=== PATIENT | male | born 1960 | race Caucasian/White ===

== ENCOUNTER 2022-10-20 20:41 | Emergency (ER) | payer MEDICARE ==
[~2022-10-20] VITALS: Ht 180.3 cm; Wt 95.2 kg
--- OUTSIDE RECORDS SUMMARY | ~2022-10-20 | XMS | Continuity of Care Document ---
Demographics + + + | Address | [address] | | | [place] [address] | + + + | Preferred Language | Unknown | + + + | Marital Status | | + + + | Confucianist Affiliation | Unknown | + + + | Race | White | + + + | Ethnic Group | Not or | + + + Author + + + | Author | [facility] | + + + | Organization | [facility] | + + + | Address | [address] | | | [place], [place] [address] | + + + | Phone | | + + + Care Team Providers + + + + | Care Bushel Worker Name | Role | Phone | + + + + Unavailable | Unavailable | + + + + Unavailable | Unavailable | + + + + Allergies No information. Encounters No information. Functional Status No information. Immunizations No information. Medications + + + + | date | description | facility | + + + + | 2022-08-31 00:00 | GABAPENTIN | [facility] | + + + + | 2022-08-31 00:00 | predniSONE | [facility] | + + + + | 2022-08-31 00:00 | HYDROCODONE | [facility] | | | BIT/ACETAMINOPHEN | | + + + + | 2022-08-31 00:00 | HYDROmorphone HCL | [facility] | + + + + | 2022-08-31 00:00 | LOSARTAN POTASSIUM | [facility] | + + + + Problems + + + + | date | description | facility | + + + + | 2022-08-31 00:00 | Hypertension | [facility] | + + + + | 2022-08-31 00:00 | Acute sciatica | [facility] | + + + + Procedures No information. Results/Labs +--------+--------+ + +---------+--------+ + | test | date | author | facility | value | unit | | | | | | | | | interpreta | | | | | | | | tion | +--------+--------+ + +---------+--------+ + + + | Result panel 1 | + + + + + + +---------+ + + | (unknown) | (no date) | (unknown) | [facility] | (no | (units | (unknown) | | | [facility] | [facility] | | | | + + + + +---------+ + + + + | Result panel 2 | + + + + + + +---------+ + + | (unknown) | (no date) | (unknown) | [facility] | (no | (units | (unknown) | | | | [facility] | value) | unknown) | | | | [facility] | | | | + + + + +---------+ + + + + | Result panel 3 | + + + + + + +---------+ + + | (unknown) | (no date) | (unknown) | [facility] | (no | (units | (unknown) | | | | [facility] | value) | unknown) | | | | | [facility] | | | | + + + + +---------+ + + + + | Result panel 4 | + + + + + + +---------+ + + | (unknown) | (no date) | (unknown) | [facility] | (no | (units | (unknown) | | | | [facility] | value) | unknown) | | | | | [facility] | | | | + + + + +---------+ + + + + | Result panel 5 | + + + + + + +---------+ + + | (unknown) | (no date) | (unknown) | [facility] | (no | (units | (unknown) | | | | [facility] | value) | unknown) | | | | | [facility] | | | | + + + + +---------+ + + + + | Result panel 6 | + + + + + + +---------+ + + | (unknown) | (no date) | (unknown) | [facility] | (no | (units | (unknown) | | | | [facility] | value) | unknown) | | | | | [facility] | | | | + + + + +---------+ + + + + | Result panel 7 | + + + + + + +---------+ + + | (unknown) | (no date) | (unknown) | [facility] | (no | (units | (unknown) | | | | [facility] | value) | unknown) | | | | [facility] | | | | + + + + +---------+ + + + + | Result panel 8 | + + + + + + +---------+ + + | (unknown) | (no date) | (unknown) | [facility] | (no | (units | (unknown) | | | | [facility] | value) | unknown) | | | | [facility] | | | | + + + + +---------+ + + + + | Result panel 9 | + + + + + + +---------+ + + | (unknown) | (no date) | (unknown) | [facility] | (no | (units | (unknown) | | | | [facility] | value) | unknown) | | | | [facility] | | | | + + + + +---------+ + + + + | Result panel 10 | + + + + + + +---------+ + + | (unknown) | (no date) | (unknown) | [facility] | (no | (units | (unknown) | | | | [facility] value) | unknown) | | | | [facility] | | | | + + + + +---------+ + + + + | Result panel 11 | + + + + + + +---------+ + + | (unknown) | (no date) | (unknown) | [facility] | (no | (units | (unknown) | | | | [facility] value) | unknown) | | | | [facility] | | | | + + + + +---------+ + + + + | Result panel 12 | + + + + + + +---------+ + + | (unknown) | (no date) | (unknown) | [facility] | (no | (units | (unknown) | | | | [facility] value) | unknown) | | | | [facility] | | | | + + + + +---------+ + + + + | Result panel 13 | + + + + + + +---------+ + + | (unknown) | (no date) | (unknown) | [facility] | (no | (units | (unknown) | | | | [facility] value) | unknown) | | | | [facility] | | | | + + + + +---------+ + + + + | Result panel 14 | + + + + + + +---------+ + + | (unknown) | (no date) | (unknown) | [facility] | (no | (units | (unknown) | | | | [facility] value) | unknown) | | | | [facility] | | | | + + + + +---------+ + + + + | Result panel 15 | + + + + + + +---------+ + + | (unknown) | (no date) | (unknown) | [facility] | (no | (units | (unknown) | | | | [facility] value) | unknown) | | | | [facility] | | | | + + + + +---------+ + + + + | Result panel 16 | + + + + + + +---------+ + + | (unknown) | (no date) | (unknown) | [facility] | (no | (units | (unknown) | | | | [facility] value) | unknown) | | | | [facility] | | | | + + + + +---------+ + + + + | Result panel 17 | + + + + + + +---------+ + + | (unknown) | (no date) | (unknown) | [facility] | (no | (units | (unknown) | | | | [facility] value) | unknown) | | | | [facility] | | | | + + + + +---------+ + + + + | Result panel 18 | + + + + + + +---------+ + + | (unknown) | (no date) | (unknown) | [facility] | (no | (units | (unknown) | | | | [facility] value) | unknown) | | | | [facility] | | | | + + + + +---------+ + + + + | Result panel 19 | + + + + + + +---------+ + + | (unknown) | (no date) | (unknown) | [facility] | (no | (units | (unknown) | | | | [facility] value) | unknown) | | | | [facility] | | | | + + + + +---------+ + + + + | Result panel 20 | + + + + + + +---------+ + + | (unknown) | (no date) | (unknown) | [facility] | (no | (units | (unknown) | | | | [facility] value) | unknown) | | | | [facility] | | | | + + + + +---------+ + + + + | Result panel 21 | + + + + + + +---------+ + + | (unknown) | (no date) | (unknown) | [facility] | (no | (units | (unknown) | | | | [facility] value) | unknown) | | | | [facility] | | | | + + + + +---------+ + + + + | Result panel 22 | + + + + + + +---------+ + + | (unknown) | (no date) | (unknown) | [facility] | (no | (units | (unknown) | | | | [facility] value) | [facility]) | | | [facility] | | | | + + + + +---------+ + + + + | Result panel 23 | + + + + + + +---------+ + + | (unknown) | (no date) | (unknown) | [facility] | (no | (units | (unknown) | | | | [facility]) | [facility]) | | | [facility] | | | | + + + + +---------+ + + + + | Result panel 24 | + + + + + + +---------+ + + | (unknown) | (no date) | (unknown) | [facility] | (no | (units | (unknown) | | | | [facility]) | [facility]) | | | [facility] | | | | + + + + +---------+ + + + + | Result panel 25 | + + + + + + +---------+ + + | (unknown) | (no date) | (unknown) | [facility] | (no | (units | (unknown) | | | | [facility] | [facility]) | | | [facility] | | | | + + + + +---------+ + + + + | Result panel 26 | + + + + + + +---------+ + + | (unknown) | (no date) | (unknown) | [facility] | (no | (units | (unknown) | | | | [facility]) | [facility]) | | | [facility] | | | | + + + + +---------+ + + + + | Result panel 27 | + + + + + + +---------+ + + | (unknown) | (no date) | (unknown) | [facility] | (no | (units | (unknown) | | | | [facility] | [facility]) | | | [facility] | | | | + + + + +---------+ + + + + | Result panel 28 | + + + + + + +---------+ + + | (unknown) | (no date) | (unknown) | [facility] | (no | (units | (unknown) | | | | [facility] | [facility]) | | | [facility] | | | | + + + + +---------+ + + + + | Result panel 29 | + + + + + + +---------+ + + | (unknown) | (no date) | (unknown) | [facility] | (no | (units | (unknown) | | | | [facility] | [facility]) | | [facility] | | | | + + + + +---------+ + + + + | Result panel 30 | + + + + + + +---------+ + + | (unknown) | (no date) | (unknown) | [facility] | (no | (units | (unknown) | | | | [facility] | [facility] | | [facility] | | | | + + + + +---------+ + + + + | Result panel 31 | + + + + + + +---------+ + + | (unknown) | (no date) | (unknown) | [facility] | (no | (units | (unknown) | | | | [facility] | [facility] | | [facility] | | | | + + + + +---------+ + + + + | Result panel 32 | + + + + + + +---------+ + + | (unknown) | (no date) | (unknown) | [facility] | (no | (units | (unknown) | | | | [facility] | [facility]) | | [facility] | | | | + + + + +---------+ + + + + | Result panel 33 | + + + + + + +---------+ + + | (unknown) | (no date) | (unknown) | [facility] | (no | (units | (unknown) | | | | [facility] value[facility] | unknown) | | [facility] | | | | + + + + +---------+ + + + + | Result panel 34 | + + + + + + +---------+ + + | (unknown) | (no date) | (unknown) | [facility] | (no | (units | (unknown) | | | | [facility] value[facility] | unknown) | | [facility] | | | | + + + + +---------+ + + Social History + + + + | date | description | facility | + + + + | 2022-08-31 00:00 | Unknown if ever smoked | [facility] | + + + + Vital Signs + + + +---------+ | date | measurement | value | units | + + + +---------+ | 2022-08-31 00:00 | BMI | 29.3 | kg/m2 | + + + +---------+ | 2022-08-31 00:00 | BP_diastolic | 102 | mmHg | + + + +---------+ | 2022-08-31 00:00 | BP_systolic | 156 | mmHg | + + + +---------+ | 2022-08-31 00:00 | heart_rate | 83 | /min | + + + +---------+ | 2022-08-31 00:00 | height_metric | 180.34 | cm | + + + +---------+ | 2022-08-31 00:00 | height_standard | 71 | in | + + + +---------+ | 2022-08-31 00:00 | o2_saturation | 93 | % | + + + +---------+ | 2022-08-31 00:00 | respiration_rate | 18 | /min | + + + +---------+ | 2022-08-31 00:00 | temperature_metric | 36.83 | C | | | | | | + + + +---------+ | 2022-08-31 00:00 | | 98.3 | F | | | temperature_standar | | | | | d | | | + + + +---------+ | 2022-08-31 00:00 | weight_metric | 95.25 | kg | + + + +---------+ | 2022-08-31 00:00 | weight_standard | 209.99 | lb | + + + +---------+ | 2022-08-31 00:00 | weight_standard | 210 | lb | + + + +---------+"
--- OUTSIDE RECORDS SUMMARY | ~2022-10-20 | XMS | Continuity of Care Document ---
Demographics + + + | Address | [address] | | | [place] [address] | + + + | Preferred Language | Unknown | + + + | Marital Status | | + + + | Rastafari Affiliation | Unknown | + + + | Race | White | + + + | Ethnic Group | Not or | + + + Author + + + | Author | [facility] | + + + | Organization | [facility] | + + + | Address | [address] | | | [place], [place] [address] | + + + | Phone | | + + + Care Team Providers + + + + | Care Manager Business Process Name | Role | Phone | + + + + Unavailable | Unavailable | + + + + Unavailable | Unavailable | + + + + Allergies No information. Encounters No information. Functional Status No information. Immunizations No information. Medications + + + + | date | description | facility | + + + + | 2022-08-31 00:00 | GABAPENTIN | [facility] | + + + + | 2022-08-31 00:00 | predniSONE | [facility] | + + + + | 2022-08-31 00:00 | HYDROCODONE | [facility] | | | BIT/ACETAMINOPHEN | | + + + + | 2022-08-31 00:00 | HYDROmorphone HCL | [facility] | + + + + | 2022-08-31 00:00 | LOSARTAN POTASSIUM | [facility] | + + + + Problems + + + + | date | description | facility | + + + + | 2022-08-31 00:00 | Hypertension | [facility] | + + + + | 2022-08-31 00:00 | Acute sciatica | [facility] | + + + + Procedures [...] | Unknown if ever smoked | [facility] | + + + + Vital [...]
[~2022-10-20 20:41] MED LIST: COZAAR100 MG PO; HYDROCODON-ACE1 EA10 PO; HYDROMORPHONE HC2 MG PO; NEURONTIN100 MG PO; PREDNISONE20 MG PO
--- OUTSIDE RECORDS SUMMARY | 2022-10-20 20:45 | XMS ---
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 EL[facility] ([facility] MO[facility] [address] [place] [address] TOTAL 3 NOTE: Visits indicate total known visits. ED/C VISIT TRACKING (12 MO.) 10/20/2022 20:41 [facility] [place] TYPE: Emergency COMPLAINT: - FALL 10/12/2022 13:24 [facility] TYPE: Emergency DIAGNOSES: - Malignant (primary) neoplasm, unspecified - Radiculopathy, lumbar region - Secondary malignant neoplasm of bone - Secondary malignant neoplasm of other specified sites - Back Pain 08/31/2022 09:41 [facility] [place] TYPE: Emergency COMPLAINT: - CHEST PAIN DIAGNOSES: - Low back pain, unspecified - Lumbago with sciatica, unspecified side - Other intermediate (current) drug therapy INPATIENT VISIT TRACKING (12 MO.) 10/12/2022 13:24 [facility] TYPE: Internal Medicine DIAGNOSES: - Essential (primary) hypertension - Lumbago with sciatica, right side - Malignant (primary) neoplasm, unspecified - Neoplasm related pain (acute) (chronic) - Other low back pain - Radiculopathy, lumbar region - Radiculopathy, lumbar region - Secondary malignant neoplasm of bone - Secondary malignant neoplasm of bone - Secondary malignant neoplasm of left lung - Secondary malignant neoplasm of other specified sites - Secondary malignant neoplasm of right lung [id number]
[2022-10-20] MEDS ORDERED: PREGABALIN50 MG PO (21:24)
[2022-10-20] MEDS ORDERED: PANTOPRAZOLE SO40 MG PO (21:24)
[2022-10-20] MEDS ORDERED: DEXAMETHASONE4 MG PO (21:24)
[2022-10-20] MEDS ORDERED: ONDANSETRON ODT4 MG PO (21:24)
[2022-10-20] MEDS ORDERED: DIAZEPAM2 MG PO (21:24)
[2022-10-20] MEDS ORDERED: BACLOFEN10 MG PO (21:24)
[2022-10-20] MEDS ORDERED: MELOXICAM15 MG PO (21:25)
[2022-10-20] MEDS ORDERED: LOSARTAN POTAS100 MG PO (21:25)
[2022-10-20] MEDS ORDERED: SUCRALFATE1 GM/10 ML PO (21:25)
[2022-10-20] MEDS ORDERED: PREGABALIN100 MG PO (21:25)
[2022-10-20] MEDS ORDERED: ADULT ASPIRIN R81 MG PO (21:26)
[2022-10-20] MEDS ORDERED: DILAUDID2 MG PO (23:28)
[2022-10-20] MEDS ORDERED: LYRICA75 MG PO (23:31)
[2022-10-20 23:47] VITALS: BP 131/92
== END 2022-10-20 23:50 | disposition home or self-care (01) ==
LOC: ED 20:41
DX: M89.9 Disorder of bone, unspecified (principal); I10 Essential (primary) hypertension; W18.09XA Striking against other object with subsequent fall, initial encounter; Z79.899 Other long term (current) drug therapy; Z79.82 Long term (current) use of aspirin
CPT/HCPCS: 72131; 73700; 96374; 99283 25; J1170

== ENCOUNTER 2022-10-23 16:47 | Emergency (ER) | payer MEDICARE ==
[~2022-10-23] VITALS: Ht 180.3 cm; Wt 95.2 kg
--- OUTSIDE RECORDS SUMMARY | ~2022-10-23 | XMS | Continuity of Care Document ---
Demographics + + + | Address | [address] | | | [place] [address] | + + + | Preferred Language | Unknown | + + + | Marital Status | | + + + | Yazdanism Affiliation | Unknown | + + + | Race | White | + + + | Ethnic Group | Not or | + + + Author + + + | Author | [facility] | + + + | Organization | [facility] | + + + | Address | [address] | | | [place] [address] | + + + | Phone | | + + + Care Team Providers + + + + | Care Software Manager Name | Role | Phone | + + + + Unavailable | Unavailable | + + + + Unavailable | Unavailable | + + + + Unavailable | Unavailable | + + + + Allergies and Intolerances + + + + + | date | description | facility | type | + + + + + | (no date) | No Known Allergies | [facility] | (unknown) | | | | | | + + + + + Encounters No information. Functional Status No information. Immunizations No information. Medications + + + + | date | description | facility | + + + + | 2022-10-20 00:00 | ONDANSETRON | [facility] | + + + + | 2022-08-31 00:00 | GABAPENTIN | [facility] | + + + + | 2022-10-20 00:00 | MELOXICAM | [facility] | + + + + | 2022-10-20 00:00 | BACLOFEN | [facility] | + + + + | 2022-10-20 00:00 | DEXAMETHASONE | [facility] | + + + + | 2022-10-20 00:00 | DIAZEPAM | [facility] | + + + + | 2022-10-20 00:00 | Aspirin | [facility] | + + + + | 2022-08-31 00:00 | predniSONE | [facility] | + + + + | 2022-10-20 00:00 | SUCRALFATE | [facility] | + + + + | 2022-10-20 00:00 | PANTOPRAZOLE SODIUM | [facility] | + + + + | 2022-10-20 00:00 | Pregabalin | [facility] | + + + + | 2022-10-20 00:00 | PREGABALIN | [facility] | + + + + | 2022-08-31 00:00 | HYDROCODONE | [facility] | | | BIT/ACETAMINOPHEN | | + + + + | 2022-08-31 00:00 | HYDROmorphone HCL | [facility] | + + + + | 2022-08-31 00:00 | HYDROmorphone HCL | [facility] | + + + + | 2022-10-20 00:00 | HYDROMORPHONE HCL | [facility] | + + + + | 2022-10-20 00:00 | LOSARTAN POTASSIUM | [facility] | + + + + | 2022-08-31 00:00 | LOSARTAN POTASSIUM | [facility] | + + + + Problems + + + + | date | description | facility | + + + + | 2022-08-31 00:00 | Hypertension | [facility] | + + + + | 2022-08-31 00:00 | Hypertension | [facility] | + + + + | 2022-08-31 00:00 | Acute sciatica | [facility] | + + + + | 2022-08-31 00:00 | Acute sciatica | [facility] | + + + + | 2022-08-31 09:41 | LUMBAGO WITH SCIATICA, | [facility] | | | UNSPECIFIED SIDE | | + + + + | 2022-08-31 09:41 | LOW BACK PAIN, UNSPECIFIED | [facility] | | | | | + + + + | 2022-08-31 09:41 | [facility] ([facility] | [facility] | | | DRUG THERAPY | | + + + + | 2022-10-20 00:00 | Lytic bone lesion of hip | [facility] | + + + + | 2022-10-20 00:00 | Bone lesion | [facility] | + + + + Procedures No [...] (unknown) | (no date) | (unknown) | [facility] (no | (units | (unknown) | | | | [facility] | value[facility] | unknown) [facility] | | | | + + + + +---------+ + + Social History + + + + | date | description | facility | + + + + | 2022-08-31 00:00 | Unknown if ever smoked | [facility] | + + + + | 2022-10-20 00:00 | Unknown if ever smoked | [facility] | + + + + Vital Signs [...]
--- OUTSIDE RECORDS SUMMARY | ~2022-10-23 | XMS | Continuity of Care Document ---
Demographics + + + | Address | [address] | | | [place] [address] | + + + | Preferred Language | Unknown | + + + | Marital Status | | + + + | Lutheran Affiliation | Unknown | + + + | Race | White | + + + | Ethnic Group | Not or | + + + Author + + + | Author | [place] | + + + | Organization | [place] | + + + | Address | [address] | | | [place] [address] | + + + | Phone | | + + + Care Team Providers + + + + | Care Production Dispatcher Name | Role | Phone | + [...] + | 2022-10-20 00:00 | ONDANSETRON | [facility] | + + + + | 2022-08-31 00:00 | GABAPENTIN | [facility] | + + + + | 2022-10-20 00:00 | MELOXICAM | [facility] | + + + + | 2022-10-20 00:00 | BACLOFEN | [facility] | + + + + | 2022-10-20 00:00 | DEXAMETHASONE | [facility] | + + + + | 2022-10-20 00:00 | DIAZEPAM | [facility] | + + + + | 2022-10-20 00:00 | Aspirin | [facility] | + + + + | 2022-08-31 00:00 | predniSONE | [facility] | + + + + | 2022-10-20 00:00 | SUCRALFATE | [facility] | + + + + | 2022-10-20 00:00 | PANTOPRAZOLE SODIUM | [facility] | + + + + | 2022-10-20 00:00 | Pregabalin | [facility] | + + + + | 2022-10-20 00:00 | PREGABALIN | [facility] | + + + + | 2022-08-31 00:00 | HYDROCODONE | [facility] | | | BIT/ACETAMINOPHEN | | + + + + | 2022-08-31 00:00 | HYDROmorphone HCL | [facility] | + + + + | 2022-08-31 00:00 | HYDROmorphone HCL | [facility] | + + + + | 2022-10-20 00:00 | HYDROMORPHONE HCL | [facility] | + + + + | 2022-10-20 00:00 | LOSARTAN POTASSIUM | [facility] | + + + + | 2022-08-31 00:00 | LOSARTAN POTASSIUM | [facility] | + + + + Problems + + + + | date | description | facility | + + + + | 2022-08-31 00:00 | Hypertension | [facility] | + + + + | 2022-08-31 00:00 | Hypertension | [facility] | + + + + | 2022-08-31 00:00 | Acute sciatica | [facility] | + + + + | 2022-08-31 00:00 | Acute sciatica | [facility] | + + + + | 2022-08-31 09:41 | LUMBAGO WITH SCIATICA, | [facility] | | | UNSPECIFIED SIDE | | + + + + | 2022-08-31 09:41 | LOW BACK PAIN, UNSPECIFIED | [facility] | | | | | + + + + | 2022-08-31 09:41 | OTHER USP (CURRENT) | [facility] | | | DRUG THERAPY | | + + + + | 2022-10-20 00:00 | Lytic bone lesion of hip | [facility] | + + + + | 2022-10-20 00:00 | Bone lesion | [facility] | + + + + Procedures No [...] 00:00 | Unknown if ever smoked | [facility] | + + + + | 2022-10-20 00:00 | Unknown if ever smoked | [facility] | + + + + Vital Signs [...]
[~2022-10-23 16:47] MED LIST changes: +ADULT ASPIRIN R81 MG PO; +BACLOFEN10 MG PO; +DEXAMETHASONE4 MG PO; +DIAZEPAM2 MG PO; +DILAUDID2 MG PO; +LOSARTAN POTAS100 MG PO; +LYRICA75 MG PO; +MELOXICAM15 MG PO; +ONDANSETRON ODT4 MG PO; +PANTOPRAZOLE SO40 MG PO; +PREGABALIN100 MG PO; +PREGABALIN50 MG PO; +SUCRALFATE1 GM/10 ML PO
--- OUTSIDE RECORDS SUMMARY | 2022-10-23 16:51 | XMS ---
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 ELizz [facility]IS[facility] COUNT (12 MO.) [facility] [address] [place] [address] TOTAL 4 NOTE: Visits indicate total known visits. ED/C VISIT TRACKING (12 MO.) 10/23/2022 16:49 [facility] TYPE: Emergency COMPLAINT: - HIP INJ 10/20/2022 20:41 [facility] [place] TYPE: Emergency COMPLAINT: - FALL 10/12/2022 13:24 [facility] TYPE: Emergency DIAGNOSES: - Malignant (primary) neoplasm, unspecified - Radiculopathy, lumbar region - Secondary malignant neoplasm of bone - Secondary malignant neoplasm of other specified sites - Back Pain 08/31/2022 09:41 [facility] TYPE: Emergency COMPLAINT: - CHEST PAIN DIAGNOSES: - Low back pain, unspecified - Lumbago with sciatica, unspecified side - Other intermediate manager (current) drug therapy INPATIENT VISIT TRACKING (12 MO.) 10/12/2022 13:24 [facility] TYPE: Internal Medicine DIAGNOSES: - Essential (primary) [...] - Secondary malignant neoplasm of right lung [email or web address]
[2022-10-23 19:58] VITALS: BP 176/111
== END 2022-10-23 19:58 | disposition short-term general hospital (02) ==
LOC: ED 16:47
DX: S72.142A Displaced intertrochanteric fracture of left femur, initial encounter for closed fracture (principal); W55.12XA Struck by horse, initial encounter; C90.00 Multiple myeloma not having achieved remission; I10 Essential (primary) hypertension; Z79.899 Other long term (current) drug therapy; Z79.82 Long term (current) use of aspirin
CPT/HCPCS: 36415; 73502; 80048; 85025; 87502; 96374; 96375; 96376; 99285 25; C9803; J1170; J2405; U0002

== ENCOUNTER 2022-11-07 08:05 | Day surgery (SDC) | payer MEDICARE ==
[2022-11-07 09:10] VITALS: BP 165/89
--- NOTE | 2022-11-07 12:46 | NUR ---
11/07/22 1246 Gisselle Jean Baptiste 1240-PT TO PACU IN SF POSITION. EYES CLOSED. DOES NOT RESPOND TO VERBAL OR TACTILE STIMULI. BREATHING EASY AND UNLABORED. SPO2 >95% ON 6 L O2 VIA SIMPLE MASK. 1246-PT OPENS EYES TO VERBAL AND TACTILE STIMULI. PT DENIES PAIN AND NAUSEA AND FALLS QUICKLY BACK TO SLEEP. BREATHING EASY AND UNLABORED. SPO2 >95% ON 6 L O2 VIA SIMPLE MASK.
[2022-11-07 13:05] VITALS: BP 175/93
--- NOTE | 2022-11-07 13:52 | NUR ---
1305: PT RETURNS TO UNIT VIA STRETCHER FROM PACU. AWAKE AND ALERT ON ARRIVAL. HOLDS APPROPRIATE CONVERSATION. VSS, RESP EVEN AND UNLABORED. DRESSING C/D/I. NERVE BLOCK IN PLACE AND MOVEMENT MINIMAL. CMS WNL. SCDS IN PLACE. DENIES PAIN AND NAUSEA. ICE WATER AND CRACKERS PROVIDED. POC DISCUSSED AND PT AGREEABLE AT THIS TIME. DENIES NEEDS, CALL LIGHT WITHIN REACH 1335: PT REPORTS URGE TO VOID. URINAL PROVIDED. NO FURTHER NEEDS
[2022-11-07 14:04] VITALS: BP 141/82
--- NOTE | 2022-11-07 14:07 | NUR ---
1405: PT COMPLETES PUDDING SNACK. VISITS WITH ON CELLPHONE. VSS, RESP EVEN AND UNLABORED. CONTS TO DENY PAIN AND NAUSEA. DRESSING REMAINS C/D/I, CMS WNL. SCDS IN PLACE. IV CONVERTED TO SL. PT REPORTS IS EN ROUTE. TO CALL FOR RN WHEN SHE ARRIVES. SUCCESSFUL FIRST POSTOP VOID, 500MLS
[2022-11-07 14:57] VITALS: BP 177/94
--- NOTE | 2022-11-07 15:34 | NUR ---
1445: PT'S ARRIVES AT THE BEDSIDE. PT DANGLES, GINA WELL DENIES DIZZINESS AND SOB. TOE TOUCH USING FRONT FACING WALKER TO BR AND BACK. STAND BY FROM THIS RN. DRESSED WITH ASSIST. DRESSING REMAINS C/D/I, CMS WNL. SL REMOVED WITH CATH TIP INTACT AND PRESSURE APPLIED TO SITE. DC INSTRUCTIONS PROVIDED AND DISCUSSED, PT VOICES UNDERSTANDING AND DENIES QUESTIONS AND CONCERNS AT THIS TIME 1510: WHEELED OFF OF UNIT BY THIS RN FOR DC. TRANSFERS INTO VEHICLE WITH MINIMAL ASSIST FROM THIS RN. NO PHYSICAL S/S OF DISTRESS.
--- NOTE | 2022-11-07 15:41 | NUR ---
[id number]: PT IN RESTROOM, AMBULATES WITH STEADY GAIT TO DS RM 2 WITH USE OF FWW. PT DENIES DIZZINESS OR NAUSEA WITH POSITION CHANGE. THIS RN ASSISTS PT INTO BED AND VS OBTAINED. SPOUSE AT BEDSIDE. Fan VALLES RN IN TO DC PATIENT.
--- NOTE | 2022-11-07 20:29 | OR ---
[facility] [address], [place] [address] Signed DATE OF OPERATION: 11/07/2022 SURGEON: José Estevez MD PREOPERATIVE DIAGNOSIS: Quadriceps rupture, left lower extremity. POSTOPERATIVE DIAGNOSIS: Left quad atrophy, left lower extremity. PROCEDURE PERFORMED: Exploration of quad tendon, left lower extremity. BUSINESS SALES CONSULTANT: Agueda Stephens PA-C. ANESTHESIA: General. BLOOD LOSS: 50 mL. TOURNIQUET TIME: Zero. BRIEF HISTORY: Mavis is a 62-year-old gentleman with hip fracture, complaining of knee pain. MRI of the knee showed possible partial quad tendon rupture. Risks and benefits of operative treatment were discussed with him and he elected to proceed. 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 DESCRIPTION OF PROCEDURE: Once consent was obtained, he was taken to the operating room. After adequate anesthesia, he was placed on the operating room table. All downside pressure points were well padded. The left leg was prepped and draped in a standard sterile fashion. A 3 inch incision was made from the superior pole of patella proximally, this was overlying the area of the palpable defect. This was carried through the skin and subcutaneous tissue and down to the quadriceps tendon. The skin flaps were developed medially and laterally. The tendon itself was visualized and was not found to be torn. There was significant atrophy of the distal quads, particularly the vastus lateralis and Electronically Signed By: JOSÉ ESTEVEZ MD 11/07/222028 PATIENT NAME: MAVIS ARSHAD OPERATIVE REPORT DATE OF : 56 REPORT #: [id number] PHYSICIAN: JOSÉ ESTEVEZ MD PCP: OTHER PCP REPORT IS CONFIDENTIAL AND NOT TO BE RELEASED WITHOUT AUTHORIZATION [address] [address] Signed rectus. The vastus medialis and obliquus were found to be fairly normal. The tendon insertion on the patella was completely intact. At that point, we elected to abandon the surgery. The wound was copiously irrigated with normal saline, closed with 0 Stratafix and 3-0 Stratafix. Steri-Strips and Liquiband were applied. Wound was dressed with an Acticoat dressing and he was awakened, taken to the recovery room in satisfactory condition. All sponge, needle, and instrument counts were correct. José Estevez MD BA/MODL /[id number] Copies: ~ Electronically Signed By: JOSÉ ESTEVEZ MD 11/07/222028 PATIENT NAME: MAVIS ARSHAD OPERATIVE REPORT DATE OF : 56 REPORT #: [id number] PHYSICIAN: JOSÉ ESTEVEZ MD PCP: OTHER PCP REPORT IS CONFIDENTIAL AND NOT TO BE RELEASED WITHOUT AUTHORIZATION
--- NOTE | 2022-11-08 16:32 | NUR ---
PT CALLED TO SEE HOW HE WAS DOING SINCE OPERATION YESTERDAY. PT STATES TAKING A "CRASH OFF OF PORCH" AND THAT HE HAS A BUMP ON THE BACK OF HIS HEAD AND HIS LEFT HIP IS TENDER. PT STATES BROTHER IN LAW CONTACTED DR. REDD' OFFICE. THIS RN CONFIRMS WITH DR. REDD' OFFICE WHO ARE AWARE.
[2022-11-10] MEDS ORDERED: DEXAMETHASONE4 MG PO (16:52)
[2022-11-10] MEDS ORDERED: PANTOPRAZOLE SO40 MG PO (16:52)
[2022-11-10] MEDS ORDERED: OXYCODONE HCL5 MG PO (16:53)
[2022-11-10] MEDS ORDERED: CELECOXIB200 MG PO (16:54)
[2022-11-10] MEDS ORDERED: PREGABALIN75 MG PO (16:55)
[2022-11-10] MEDS ORDERED: ACETAMINOPHEN325 M1 PO (16:56)
[2022-11-10] MEDS ORDERED: GABAPENTIN100 MG PO (16:58)
[2022-11-11] MEDS ORDERED: ACETAMINOPHEN500 MG PO (11:59)
[2022-11-11] MEDS ORDERED: LIDOCAINE PAIN1 EACH TD (11:59)
[2022-11-11] MEDS ORDERED: OXYCODONE HCL5 MG PO (12:01)
== END 2022-11-07 15:10 | disposition home or self-care (01) ==
LOC: DS 08:05
PROVIDERS: ATTEND Specialist
PROC: 3E0T3BZ Introduction of Anesthetic Agent into Peripheral Nerves and Plexi, Percutaneous Approach (ICD-10-PCS; 2022-11-07)
PROC: 0YJ Anatomical Regions, Lower Extremities, Inspection (ICD-10-PCS; principal; 2022-11-07 14:15)
DX: M62.552 Muscle wasting and atrophy, not elsewhere classified, left thigh (principal); S72.142A Displaced intertrochanteric fracture of left femur, initial encounter for closed fracture; W55.12XA Struck by horse, initial encounter; Z79.899 Other long term (current) drug therapy
CPT/HCPCS: 01360; 36415; 64447; 76942; 80053; 85025; J0690; J1100; J1885; J2001; J2405; J2704; J2795; J3010

== ENCOUNTER 2022-12-13 11:17 | Inpatient (IN) | payer MEDICARE ==
[~2022-12-13] VITALS: Ht 177.8 cm; Wt 87.9 kg
--- OUTSIDE RECORDS SUMMARY | ~2022-12-13 | XMS | Continuity of Care Document ---
Demographics + + + | Address | [address] | | | [place] [address] | + + + | Preferred Language | Unknown | + + + | Marital Status | | + + + | Gnosticist Affiliation | Unknown | + + + | Race | White | + + + | Ethnic Group | Not or | + + + Author + + + | Author | [facility] | + + + | Organization | [facility] | + + + | Address | [address] | | | [place] [address] | + + + | Phone | | + + + Care Team Providers + + + + | Care Environmental Engineering Technician Name | Role | Phone | + [...] Unavailable | + + + + Allergies and Intolerances + + + + + + | date | description | facility | reaction | severity | + + + + + + | (no date) | No Known | [facility] | (no reaction) | (no severity) | | | Allergies | | | | + + + + + + Encounters No information. Functional Status No information. Immunizations No information. Medications + + + + | date | description | facility | + + + + | 2022-10-20 00:00 | ONDANSETRON | [facility] | + + + + | 2022-10-23 00:00 | ONDANSETRON | [facility] | + + + + | 2022-11-07 00:00 | ONDANSETRON | [facility] | + + + + | 2022-11-11 00:00 | ONDANSETRON | [facility] | + + + + | 2022-11-11 00:00 | OXYCODONE HCL | [facility] | + + + + | 2022-08-31 00:00 | GABAPENTIN | [facility] | + + + + | 2022-10-20 00:00 | MELOXICAM | [facility] | + + + + | 2022-10-23 00:00 | MELOXICAM | [facility] | + + + + | 2022-11-07 00:00 | MELOXICAM | [facility] | + + + + | 2022-11-11 00:00 | MELOXICAM | [facility] | + + + + | 2022-11-11 00:00 | Lidocaine | [facility] | + + + + | 2022-10-20 00:00 | BACLOFEN | [facility] | + + + + | 2022-10-23 00:00 | BACLOFEN | [facility] | + + + + | 2022-11-07 00:00 | BACLOFEN | [facility] | + + + + | 2022-11-11 00:00 | BACLOFEN | [facility] | + + + + | 2022-10-20 00:00 | DEXAMETHASONE | [facility] | + + + + | 2022-10-23 00:00 | DEXAMETHASONE | [facility] | + + + + | 2022-11-07 00:00 | DEXAMETHASONE | [facility] | + + + + | 2022-11-11 00:00 | DEXAMETHASONE | [facility] | + + + + | 2022-10-20 00:00 | DIAZEPAM | [facility] | + + + + | 2022-10-23 00:00 | DIAZEPAM | [facility] | + + + + | 2022-11-07 00:00 | DIAZEPAM | [facility] | + + + + | 2022-11-11 00:00 | DIAZEPAM | [facility] | + + + + | 2022-11-11 00:00 | ACETAMINOPHEN | [facility] | + + + + | 2022-11-11 00:00 | CELECOXIB | [facility] | + + + + | 2022-10-20 00:00 | Aspirin | [facility] | + + + + | 2022-10-23 00:00 | Aspirin | [facility] | + + + + | 2022-11-07 00:00 | Aspirin | [facility] | + + + + | 2022-11-11 00:00 | Aspirin | [facility] | + + + + | 2022-11-11 00:00 | GABAPENTIN | [facility] | + + + + | 2022-08-31 00:00 | predniSONE | [facility] | + + + + | 2022-10-20 00:00 | SUCRALFATE | [facility] | + + + + | 2022-10-23 00:00 | SUCRALFATE | [facility] | + + + + | 2022-11-07 00:00 | SUCRALFATE | [facility] | + + + + | 2022-11-11 00:00 | SUCRALFATE | [facility] | + + + + | 2022-11-11 00:00 | ACETAMINOPHEN | [facility] | + + + + | 2022-10-20 00:00 | PANTOPRAZOLE SODIUM | [facility] | + + + + | 2022-10-23 00:00 | PANTOPRAZOLE SODIUM | [facility] | + + + + | 2022-11-11 00:00 | PANTOPRAZOLE SODIUM | [facility] | + + + + | 2022-10-20 00:00 | Pregabalin | [facility] | + + + + | 2022-10-23 00:00 | Pregabalin | [facility] | + + + + | 2022-11-11 00:00 | Pregabalin | [facility] | + + + + | 2022-10-20 00:00 | PREGABALIN | [facility] | + + + + | 2022-10-20 00:00 | PREGABALIN | [facility] | + + + + | 2022-08-31 00:00 | HYDROCODONE | [facility] | | | BIT/ACETAMINOPHEN | | + + + + | 2022-08-31 00:00 | HYDROmorphone HCL | [facility] | + + + + | 2022-08-31 00:00 | HYDROmorphone HCL | [facility] | + + + + | 2022-08-31 00:00 | HYDROmorphone HCL | [facility] | + + + + | 2022-08-31 00:00 | HYDROmorphone HCL | [facility] | + + + + | 2022-08-31 00:00 | HYDROmorphone HCL | [facility] | + + + + | 2022-10-20 00:00 | HYDROMORPHONE HCL | [facility] | + + + + | 2022-10-20 00:00 | HYDROMORPHONE HCL | [facility] | + + + + | 2022-10-20 00:00 | HYDROMORPHONE HCL | [facility] | + + + + | 2022-10-20 00:00 | HYDROMORPHONE HCL | [facility] | + + + + | 2022-10-20 00:00 | LOSARTAN POTASSIUM | [facility] | + + + + | 2022-10-23 00:00 | LOSARTAN POTASSIUM | [facility] | + + + + | 2022-11-07 00:00 | LOSARTAN POTASSIUM | [facility] | + + + + | 2022-11-11 00:00 | LOSARTAN POTASSIUM | [facility] | + + + + | 2022-08-31 00:00 | LOSARTAN POTASSIUM | [facility] | + + + + Problems + + + + | date | description | facility | + + + + | 2022-08-31 00:00 | Hypertension | [facility] | + + + + | 2022-08-31 00:00 | Hypertension | [facility] | + + + + | 2022-08-31 00:00 | Hypertension | [facility] | + + + + | 2022-08-31 00:00 | Hypertension | [facility] | + + + + | 2022-08-31 00:00 | Hypertension | [facility] | + + + + | 2022-08-31 00:00 | Acute sciatica | [facility] | + + + + | 2022-08-31 00:00 | Acute sciatica | [facility] | + + + + | 2022-08-31 00:00 | Acute sciatica | [facility] | + + + + | 2022-08-31 00:00 | Acute sciatica | [facility] | + + + + | 2022-08-31 00:00 | Acute sciatica | [facility] | + + + + | 2022-08-31 09:41 | LUMBAGO WITH SCIATICA, | [facility] | | | UNSPECIFIED SIDE | | + + + + | 2022-08-31 09:41 | LOW BACK PAIN, UNSPECIFIED | [facility] | | | | | + + + + | 2022-08-31 09:41 | OTHER CARE HOME (CURRENT) | [facility] | | | DRUG THERAPY | | + + + + | 2022-10-20 00:00 | Lytic bone lesion of hip | [facility] | + + + + | 2022-10-20 00:00 | Lytic bone lesion of hip | [facility] | + + + + | 2022-10-20 00:00 | Lytic bone lesion of hip | [facility] | + + + + | 2022-10-20 00:00 | Lytic bone lesion of hip | [facility] | + + + + | 2022-10-20 00:00 | Bone lesion | [facility] | + + + + | 2022-10-20 00:00 | Bone lesion | [facility] | + + + + | 2022-10-20 00:00 | Bone lesion | [facility] | + + + + | 2022-10-20 00:00 | Bone lesion | [facility] | + + + + | 2022-10-20 20:41 | Essential (primary) | [facility] | | | hypertension | | + + + + | 2022-10-20 20:41 | PAIN IN LEFT HIP | [facility] | + + + + | 2022-10-20 20:41 | DISORDER OF BONE, | [facility] | | | UNSPECIFIED | | + + + + | 2022-10-20 20:41 | STRIKING AGAINST OTH | [facility] | | | OBJECT W SUBSEQUENT FALL, | | | | INI | | + + + + | 2022-10-20 20:41 | CARE HOME (CURRENT) USE OF | [facility] | | | ASPIRIN | | + + + + | 2022-10-20 20:41 | OTHER CARE HOME (CURRENT) | [facility] | | | DRUG THERAPY | | + + + + | 2022-10-23 00:00 | Multiple myeloma | [facility] | + + + + | 2022-10-23 00:00 | Multiple myeloma | [facility] | + + + + | 2022-10-23 00:00 | Multiple myeloma | [facility] | + + + + | 2022-10-23 00:00 | Intertrochanteric fracture | [facility] | | | of left femur | | + + + + | 2022-10-23 00:00 | Intertrochanteric fracture | [facility] | | | of left femur | | + + + + | 2022-10-23 00:00 | Intertrochanteric fracture | [facility] | | | of left femur | | + + + + | 2022-10-23 16:49 | MULTIPLE MYELOMA NOT | [facility] | | | HAVING ACHIEVED REMISSION | | + + + + | 2022-10-23 16:49 | Essential (primary) | [facility] | | | hypertension | | + + + + | 2022-10-23 16:49 | DISPLACED | [facility] | | | INTERTROCHANTERIC FRACTURE | | | | OF LEFT FEMUR, INIT | | + + + + | 2022-10-23 16:49 | STRUCK BY HORSE, INITIAL | [facility] | | | ENCOUNTER | | + + + + | 2022-10-23 16:49 | TARP REPAIRER (CURRENT) USE OF | [facility] | | | ASPIRIN | | + + + + | 2022-10-23 16:49 | OTHER TARP REPAIRER (CURRENT) | [facility] | | | DRUG THERAPY | | + + + + | 2022-11-07 08:05 | MUSCLE WASTING AND | [facility] | | | ATROPHY, NEC, LEFT THIGH | | + + + + | 2022-11-07 08:05 | DISPLACED | [facility] | | | INTERTROCHANTERIC FRACTURE | | | | OF LEFT FEMUR | | + + + + | 2022-11-07 08:05 | STRUCK BY HORSE, INITIAL | [facility] | | | ENCOUNTER | | + + + + | 2022-11-07 08:05 | OTHER TARP REPAIRER (CURRENT) | [facility] | | | DRUG THERAPY | | + + + + | 2022-11-10 00:00 | Metastatic malignant | [facility] | | | neoplasm | | + + + + | 2022-11-10 00:00 | Avulsion of scapula | [facility] | + + + + | 2022-11-10 10:43 | MALIGNANT NEOPLASM OF UNSP | [facility] | | | PART OF UNSPECIFIED ADR | | + + + + | 2022-11-10 10:43 | ANEMIA, UNSPECIFIED | [facility] | + + + + | 2022-11-10 10:43 | HYPO-OSMOLALITY AND | [facility] | | | HYPONATREMIA | | + + + + | 2022-11-10 10:43 | Essential (primary) | [facility] | | | hypertension | | + + + + | 2022-11-10 10:43 | TACHYCARDIA, UNSPECIFIED | [facility] | + + + + | 2022-11-10 10:43 | SIRS OF NON-INFECTIOUS | [facility] | | | ORIGIN W/O ACUTE ORGAN DYSF | | | | | | + + + + | 2022-11-10 10:43 | FRACTURE OF UNSP PART OF | [facility] | | | SCAPULA, RIGHT SHOULDER, | | + + + + | 2022-11-10 10:43 | DISPLACED | [facility] | | | INTERTROCHANTERIC FRACTURE | | | | OF LEFT FEMUR, INIT | | + + + + | 2022-11-10 10:43 | UNSPECIFIED FALL, INITIAL | [facility] | | | ENCOUNTER | | + + + + | 2022-11-10 10:43 | CARE HOME (CURRENT) USE OF | [facility] | | | ASPIRIN | | + + + + | 2022-11-10 10:43 | OTHER CARE HOME (CURRENT) | [facility] | | | DRUG THERAPY | | + + + + | 2022-11-14 14:00 | 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 Results/Labs +--------+--------+ +---------+--------+---------+ | test | date | facility | value | unit | notes | +--------+--------+ +---------+--------+---------+ + + | Result panel 1 | + + + + + +--------+ + + | | 2022-08-31 | [facility] | 13.8 | (missing) | (missing) | | (unavailable | 10:10:07 | [facility] | | | | + + + +--------+ + + + + | Result panel 2 | + + + + + +--------+ + + | | 2022-08-31 | [facility] | 5.32 | (missing) | (missing) | | (unavailable | 10:10:07 [facility] | | | | + + + +--------+ + + + + | Result panel 3 | + + + + + +--------+ + + | | 2022-08-31 | [facility] | 16.1 | (missing) | (missing) | | (unavailable | 10:10:07 [facility] | | | | + + + +--------+ + + + + | Result panel 4 | + + + + + +--------+ + + | | 2022-08-31 | [facility] | 46.7 | (missing) | (missing) | | (unavailable | 10:10:07 [facility] | | | | + + + +--------+ + + + + | Result panel 5 | + + + + + +--------+ + + | | 2022-08-31 | [facility] | 87.8 | (missing) | (missing) | | (unavailable | 10:10:07 [facility] | | | | + + + +--------+ + + + + | Result panel 6 | + + + + + +--------+ + + | | 2022-08-31 | [facility] | 30.2 | (missing) | (missing) | | (unavailable | 10:10:07 [facility] | | | | + + + +--------+ + + + + | Result panel 7 | + + + + + +--------+ + + | | 2022-08-31 | [facility] | 34.4 | (missing) | (missing) | | (unavailable | 10:10:07 [facility] | | | | + + + +--------+ + + + + | Result panel 8 | + + + + + +--------+ + + | | 2022-08-31 | [facility] | 14.1 | (missing) | (missing) | | (unavailable | 10:10:07 [facility] | | | | + + + +--------+ + + + + | Result panel 9 | + + + + + +-------+ + + | | 2022-08-31 | [facility] | 272 | (missing) | (missing) | | (unavailable | 10:10:07 [facility] | | | | + + + +-------+ + + + + | Result panel 10 | + + + + + +--------+ + + | | 2022-08-31 | [facility] | 81.0 | (missing) | (missing) | | (unavailable | 10:10:07 [facility] | | | | + + + +--------+ + + + + | Result panel 11 | + + + + + +-------+ + + | | 2022-08-31 | [facility] | 9.6 | (missing) | (missing) | | (unavailable | 10:10:07 [facility] | | | | + + + +-------+ + + + + | Result panel 12 | + + + + + +-------+ + + | | 2022-08-31 | [facility] | 8.8 | (missing) | (missing) | | (unavailable | 10:10:07 [facility] | | | | + + + +-------+ + + + + | Result panel 13 | + + + + + +-------+ + + | | 2022-08-31 | [facility] | 0.5 | (missing) | (missing) | | (unavailable | 10:10:07 [facility] | | | | + + + +-------+ + + + + | Result panel 14 | + + + + + +-------+ + + | | 2022-08-31 | [facility] | 0.1 | (missing) | (missing) | | (unavailable | 10:10:07 [facility] | | | | + + + +-------+ + + + + | Result panel 15 | + + + + + +-------+---------+ + | | 2022-08-31 | [facility] | 119 | mg/dL | (missing) | | (unavailable | 10:50:07 [facility] | | | | + + + +-------+---------+ + + + | Result panel 16 | + + + + + +------+---------+ + | | 2022-08-31 | [facility] | 28 | mg/dL | (missing) | | (unavailable | 10:50:07 [facility] | | | | + + + +------+---------+ + + + | Result panel 17 | + + + + + +--------+---------+ + | | 2022-08-31 | [facility] | 0.90 | mg/dL | (missing) | | (unavailable | 10:50:07 [facility] | | | | + + + +--------+---------+ + + + | Result panel 18 | + + + + + +------+ + + | | 2022-08-31 | [facility] | 95 | (missing) | (missing) | | (unavailable | 10:50:07 [facility] | | | | + + + +------+ + + + + | Result panel 19 | + + + + + +---------+ + + | | 2022-08-31 | [facility] | 31.11 | (missing) | (missing) | | (unavailable | 10:50:07 [facility] | | | | + + + +---------+ + + + + | Result panel 20 | + + + + + +-------+ + + | | 2022-08-31 | [facility] | 135 | (missing) | (missing) | | (unavailable | 10:50:07 [facility] | | | | + + + +-------+ + + + + | Result panel 21 | + + + + + +-------+ + + | | 2022-08-31 | [facility] | 4.6 | (missing) | (missing) | | (unavailable | 10:50:07 [facility] | | | | + + + +-------+ + + + + | Result panel 22 | + + + + + +------+ + + | | 2022-08-31 | [facility] | 97 | (missing) | (missing) | | (unavailable | 10:50:07 [facility] | | | | + + + +------+ + + + + | Result panel 23 | + + + + + +------+ + + | | 2022-08-31 | [facility] | 29 | (missing) | (missing) | | (unavailable | 10:50:07 [facility] | | | | + + + +------+ + + + + | Result panel 24 | + + + + + +--------+ + + | | 2022-08-31 | [facility] | 13.6 | (missing) | (missing) | | (unavailable | 10:50:07 [facility] | | | | + + + +--------+ + + + + | Result panel 25 | + + + + + +-------+---------+ + | | 2022-08-31 | [facility] | 9.1 | mg/dL | (missing) | | (unavailable | 10:50:07 [facility] | | | | + + + +-------+---------+ + + + | Result panel 26 | + + + + + +-------+ + + | | 2022-08-31 | [facility] | 7.8 | (missing) | (missing) | | (unavailable | 10:50:07 [facility] | | | | + + + +-------+ + + + + | Result panel 27 | + + + + + +-------+ + + | | 2022-08-31 | [facility] | 3.9 | (missing) | (missing) | | (unavailable | 10:50:07 [facility] | | | | + + + +-------+ + + + + | Result panel 28 | + + + + + +-------+ + + | | 2022-08-31 | [facility] | 3.9 | (missing) | (missing) | | (unavailable | 10:50:07 [facility] | | | | + + + +-------+ + + + + | Result panel 29 | + + + + + +--------+ + + | | 2022-08-31 | [facility] | 1.00 | (missing) | (missing) | | (unavailable | 10:50:07 [facility] | | | | + + + +--------+ + + + + | Result panel 30 | + + + + + +-------+ + + | | 2022-08-31 | [facility] | 0.8 | (missing) | (missing) | | (unavailable | 10:50:07 [facility] | | | | + + + +-------+ + + + + | Result panel 31 | + + + + + +------+ + + | | 2022-08-31 | [facility] | 22 | (missing) | (missing) | | (unavailable | 10:50:07 [facility] | | | | + + + +------+ + + + + | Result panel 32 | + + + + + +------+ + + | | 2022-08-31 | [facility] | 33 | (missing) | (missing) | | (unavailable | 10:50:07 | [facility] | | | | + + + +------+ + + + + | Result panel 33 | + + + + + +-------+ + + | | 2022-08-31 | [facility] | 142 | (missing) | (missing) | | (unavailable | 10:50:07 [facility] | | | | + + + +-------+ + + + + | Result panel 34 | + + + + + +-------+ + + | | 2022-08-31 | [facility] | 9.4 | (missing) | (missing) | | (unavailable | 10:50:07 [facility] | | | | + + + +-------+ + + + + | Result panel 35 | + + + + + +--------+ + + | | 2022-10-23 | [facility] | 12.5 | (missing) | (missing) | | (unavailable | 17:02:07 [facility] | | | | + + + +--------+ + + + + | Result panel 36 | + + + + + +--------+ + + | | 2022-10-23 | [facility] | 38.0 | (missing) | (missing) | | (unavailable | 17:02:07 [facility] | | | | + + + +--------+ + + + + | Result panel 37 | + + + + + +--------+ + + | | 2022-10-23 | [facility] | 89.1 | (missing) | (missing) | | (unavailable | 17:02:07 [facility] | | | | + + + +--------+ + + + + | Result panel 38 | + + + + + +--------+ + + | | 2022-10-23 | [facility] | 29.3 | (missing) | (missing) | | (unavailable | 17:02:07 [facility] | | | | + + + +--------+ + + + + | Result panel 39 | + + + + + +--------+ + + | | 2022-10-23 | [facility] | 32.9 | (missing) | (missing) | | (unavailable | 17:02:07 [facility] | | | | + + + +--------+ + + + + | Result panel 40 | + + + + + +--------+ + + | | 2022-10-23 | [facility] | 13.7 | (missing) | (missing) | | (unavailable | 17:02:07 [facility] | | | + + + +--------+ + + + + | Result panel 41 | + + + + + +-------+ + + | | 2022-10-23 | [facility] | 234 | (missing) | (missing) | | (unavailable | 17:02:07 [facility] | | | | + + + +-------+ + + + + | Result panel 42 | + + + + + +--------+ + + | | 2022-10-23 | [facility] | 91.2 | (missing) | (missing) | | (unavailable | 17:02:07 [facility] | | | | + + + +--------+ + + + + | Result panel 43 | + + + + + +-------+ + + | | 2022-10-23 | [facility] | 2.2 | (missing) | (missing) | | (unavailable | 17:02:07 [facility] | | | | + + + +-------+ + + + + | Result panel 44 | + + + + + +-------+ + + | | 2022-10-23 | [facility] | 6.3 | (missing) | (missing) | | (unavailable | 17::07 [facility] | | | | + + + +-------+ + + + + | Result panel 45 | + + + + + +-------+ + + | | 2022-10-23 | [facility] | 0.1 | (missing) | (missing) | | (unavailable | 17:02:07 [facility] | | | | + + + +-------+ + + + + | Result panel 46 | + + + + + +-------+ + + | | 2022-10-23 | [facility] | 0.2 | (missing) | (missing) | | (unavailable | 17:02:07 [facility] | | | | + + + +-------+ + + + + | Result panel 47 | + + + + + +-------+---------+ + | | 2022-10-23 | [facility] | 192 | mg/dL | (missing) | | (unavailable | 17:02:07 [facility] | | | | + + + +-------+---------+ + + + | Result panel 48 | + + + + + +------+---------+ + | | 2022-10-23 | [facility] | 36 | mg/dL | (missing) | | (unavailable | 17::07 [facility] | | | | + + + +------+---------+ + + + | Result panel 49 | + + + + + +--------+---------+ + | | 2022-10-23 | [facility] | 1.10 | mg/dL | (missing) | | (unavailable | 17:02:07 [facility] | | | | + + + +--------+---------+ + + + | Result panel 50 | + + + + + +------+ + + | | 2022-10-23 | [facility] | 75 | (missing) | (missing) | | (unavailable | 17::07 [facility] | | | | + + + +------+ + + + + | Result panel 51 | + + + + + +---------+ + + | | 2022-10-23 | [facility] | 32.72 | (missing) | (missing) | | (unavailable | 17:02:07 [facility] | | | | + + + +---------+ + + + + | Result panel 52 | + + + + + +-------+ + + | | 2022-10-23 | [facility] | 139 | (missing) | (missing) | | (unavailable | 17:02:07 [facility] | | | | + + + +-------+ + + + + | Result panel 53 | + + + + + +-------+ + + | | 2022-10-23 | [facility] | 4.2 | (missing) | (missing) | | (unavailable | 17:02:07 [facility] | | | | + + + +-------+ + + + + | Result panel 54 | + + + + + +-------+ + + | | 2022-10-23 | [facility] | 102 | (missing) | (missing) | | (unavailable | 17::07 [facility] | | | | + + + +-------+ + + + + | Result panel 55 | + + + + + +------+ + + | | 2022-10-23 | [facility] | 29 | (missing) | (missing) | | (unavailable | 17:02:07 [facility] | | | | + + + +------+ + + + + | Result panel 56 | + + + + + +--------+ + + | | 2022-10-23 | [facility] | 12.2 | (missing) | (missing) | | (unavailable | 17::07 | [facility] | | | | + + + +--------+ + + + + | Result panel 57 | + + + + + +-------+---------+ + | | 2022-10-23 | [facility] | 8.3 | mg/dL | (missing) | | (unavailable | 17:02:07 | [facility] | | | | + + + +-------+---------+ + + + | Result panel 58 | + + + + + +--------+ + + | | 2022-10-23 | [facility] | 16.2 | (missing) | (missing) | | (unavailable | 17:02:07 | [facility] | | | | + + + +--------+ + + + + | Result panel 59 | + + + + + +--------+ + + | | 2022-10-23 | [facility] | 4.27 | (missing) | (missing) | | (unavailable | 17:02:07 | [facility] | | | | + + + +--------+ + + + + | Result panel 60 | + + + + + + + + + | | 2022-10-23 | [facility] | NEGATIVE | (missing) | (missing) | | (unavailable | 19:31:07 | [facility] | | | | + + + + + + + + + | Result panel 61 | + + + + + + + + + | | 2022-10-23 | [facility] | NEGATIVE | (missing) | (missing) | | (unavailable | 19:31:07 | [facility] | | | | + + + + + + + + + | Result panel 62 | + + + + + + + + + | | 2022-10-23 | [facility] | NEGATIVE | (missing) | (missing) | | (unavailable | 19:31:07 | [facility] | | | | + + + + + + + + + | Result panel 63 | + + + + + + + + + | | 2022-10-23 | [facility] | NEGATIVE | (missing) | (missing) | | (unavailable | 19:31:07 | [facility] | | | | + + + + + + + + + | Result panel 64 | + + + + + + + + + | | 2022-10-23 | [facility] | NEGATIVE | (missing) | (missing) | | (unavailable | 19:31:07 | [facility] | | | | + + + + + + + + + | Result panel 65 | + + + + + + + + + | | 2022-10-23 | [facility] | NEGATIVE | (missing) | (missing) | | (unavailable | 19:31:07 | [facility] | | | | + + + + + + + + + | Result panel 66 | + + + + + + + + + | | 2022-10-23 | [facility] | NEGATIVE | (missing) | (missing) | | (unavailable | 19:31:07 | [facility] | | | | + + + + + + + + + | Result panel 67 | + + + + + + + + + | | 2022-10-23 | [facility] | NEGATIVE | (missing) | (missing) | | (unavailable | 19:31:07 | [facility] | | | | + + + + + + + + + | Result panel 68 | + + + + + + + + + | | 2022-10-23 | [facility] | NEGATIVE | (missing) | (missing) | | (unavailable | 19:31:07 | [facility] | | | | + + + + + + + + + | Result panel 69 | + + + + + + + + + | | 2022-10-23 | [facility] | NEGATIVE | (missing) | (missing) | | (unavailable | 19:31:07 | [facility] | | | | + + + + + + + + + | Result panel 70 | + + + + + + + + + | | 2022-10-23 | [facility] | NEGATIVE | (missing) | (missing) | | (unavailable | 19:31:07 | [facility] | | | | + + + + + + + + + | Result panel 71 | + + + + + + + + + | | 2022-10-23 | [facility] | NEGATIVE | (missing) | (missing) | | (unavailable | 19:31:07 | [facility] | | | | + + + + + + + + + | Result panel 72 | + + + + + + + + + | RESEARCH | 2022-10-25 | [facility] | See | (missing) | (missing) | | SOLID TUMOR | 12:48:56 | [facility] | Separate | | | | NGS FINAL | | MEDICAL | Report | | | | | | CENTER | | | | + + + + + + + | RESEARCH | 2022-10-25 | [facility] | See | (missing) | (missing) | | SOLID TUMOR | 12:48:56 | [facility] | Separate | | | | NGS FINAL | | MEDICAL | Report | | | | | | CENTER | | | | + + + + + + + + + | Result panel 73 | + + + + + + + + + | | 2022-10-25 | [facility] | (missing) | (missing) | (missing) | | (unavailable | 12:49 | [facility] | | | | | ) | | MEDICAL | | | | | | | CENTER | | | | + + + + + + + | | 2022-10-25 | [facility] | (TC) and | (missing) | (missing) | | (unavailable | 12:49 | [facility] | tumor-infilt | | | | ) | | MEDICAL | rating | | | | | | CENTER | immune cells | | | | | | | (IC) based | | | | | | | on a | | | | | | | four-tiered | | | | | | | scoring | | | | | | | criteria as | | | + + + + + + + | | 2022-10-25 | [facility] | [address] | (missing) | (missing) | | (unavailable | 12:49 | [facility] | [address] | | | | ) | | MEDICAL | [address], | | | | | | CENTER | [place], | | | | | | | [place], [address] | | | | | | | CLIA#[id number] | | | | | | | [address] | | | + + + + + + + | | 2022-10-25 | [facility] | 10/13/2022 | (missing) | (missing) | | (unavailable | 12:49 | [facility] | 12:26 PDT | | | | ) | | MEDICAL | 10/25/2022 | | | | | | CENTER | 12:49 PDT | | | | | | | KWASI, | | | | | | | TJ Rodriguez | | | + + + + + + + | | 2022-10-25 | [facility] | 10/17/2022 | (missing) | (missing) | | (unavailable | 12:49 | [facility] | identifies | | | | ) | | MEDICAL | the patient | | | | | | CENTER | by name, | | | | | | | case number, | | | | | | | and tissue | | | | | | | site as | | | | | | | right | | | | | | | scapular | | | | | | | lesion, | | | + + + + + + + | | 2022-10-25 | [facility] | ACCT: | (missing) | (missing) | | (unavailable | 12:49 | [facility] | [id number] | | | | ) | | MEDICAL | | | | | | | CENTER | | | | + + + + + + + | | 2022-10-25 | [facility] | JEANCARLOS, | (missing) | (missing) | | (unavailable | 12:49 | [facility] | [facility] | | | | ) | | MEDICAL | | | | | | | CENTER | | | | + + + + + + + | | 2022-10-25 | [facility] | CASE #: | (missing) | (missing) | | (unavailable | 12:49 | [facility] | [id number] | | | | ) | | MEDICAL | | | | | | | CENTER | | | | + + + + + + + | | 2022-10-25 | [facility] | CT-guided | (missing) | (missing) | | (unavailable | 12:49 | [facility] | needle core | | | | ) | | MEDICAL | biopsies. | | | | | | CENTER | | | | + + + + + + + | | 2022-10-25 | [facility] | Clinical | (missing) | (missing) | | (unavailable | 12:49 | [facility] | Information | | | | ) | | MEDICAL | | | | | | | CENTER | | | | + + + + + + + | | 2022-10-25 | [facility] | Collected: | (missing) | (missing) | | (unavailable | 12:49 | [facility] | Received: | | | | ) | | MEDICAL | Responsible | | | | | | CENTER | Pathologist: | | | | | | | | | | + + + + + + + | | 2022-10-25 | [facility] | : | (missing) | (missing) | | (unavailable | 12:49 | [facility] | 1960 | | | | ) | | MEDICAL | AGE: 62 | | | | | | CENTER | years SEX: M | | | | | | | | | | + + + + + + + | | 2022-10-25 | [facility] | Diagnosis | (missing) | (missing) | | (unavailable | 12:49 | [facility] | | | | | ) | | MEDICAL | | | | | | | CENTER | | | | + + + + + + + | | 2022-10-25 | [facility] | | (missing) | (missing) | | (unavailable | 12:49 | [facility] | Electronical | | | | ) | | MEDICAL | ly signed | | | | | | CENTER | by: TJ | | | | | | | SJadiel | | | | | | | KWASI, | | | | | | | M.DJadiel | | | | | | | 10/26/2022 | | | | | | | 9:00 | | | + + + + + + + | | 2022-10-25 | [facility] | Gross | (missing) | (missing) | | (unavailable | 12:49 | [facility] | Description | | | | ) | | MEDICAL | | | | | | | CENTER | | | | + + + + + + + | | 2022-10-25 | [facility] | Immunohistoc | (missing) | (missing) | | (unavailable | 12:49 | [facility] | hemistry | | | | ) | | MEDICAL | with [place] | | | | | | CENTER | PD-L1 | | | | | | | ([id number]) | | | | | | | Assay was | | | | | | | validated | | | | | | | against Dako | | | | | | | PD-L1 | | | | | | | (22C3) | | | + + + + + + + | | 2022-10-25 | [facility] | Intensity: | (missing) | (missing) | | (unavailable | 12:49 | [facility] | Not | | | | ) | | MEDICAL | applicable | | | | | | CENTER | | | | + + + + + + + | | 2022-10-25 | [facility] | MRN: | (missing) | (missing) | | (unavailable | 12:49 | [facility] | [id number] | | | | ) | | MEDICAL | | | | | | | CENTER | | | | + + + + + + + | | 2022-10-25 | [facility] | MSG/MSG | (missing) | (missing) | | (unavailable | 12:49 | [facility] | | | | | ) | | MEDICAL | | | | | | | CENTER | | | | + + + + + + + | | 2022-10-25 | [facility] | Note: | (missing) | (missing) | | (unavailable | 12:49 | [facility] | [place] | | | | ) | | MEDICAL | PD-L1 | | | | | | CENTER | (SP263) | | | | | | | Assay is a | | | | | | | qualitative | | | | | | | immunohistoc | | | | | | | hemical | | | | | | | assay using | | | + + + + + + + | | 2022-10-25 | [facility] | ORDERING: | (missing) | (missing) | | (unavailable | 12:49 | [facility] | PHYSICIAN, | | | | ) | | MEDICAL | NOT ONTABLE | | | | | | CENTER | | | | + + + + + + + | | 2022-10-25 | [facility] | OUTSIDE | (missing) | (missing) | | (unavailable | 12:49 | [facility] | CASE REPORT | | | | ) | | MEDICAL | | | | | | | CENTER | | | | + + + + + + + | | 2022-10-25 | [facility] | OptiView DAB | (missing) | (missing) | | (unavailable | 12:49 | [facility] | IHC | | | | ) | | MEDICAL | Detection | | | | | | CENTER | Kit and | | | | | | | OptiView | | | | | | | Amplificatio | | | | | | | n Kit on a | | | | | | | VENTANA | | | | | | | BenchMark | | | | | | | ULTRA | | | + + + + + + + | | 2022-10-25 | [facility] | Outside | (missing) | (missing) | | (unavailable | 12:49 | [facility] | block | | | | ) | | MEDICAL | [id number] | | | | | | CENTER | A1) | | | | | | | received for | | | | | | | PD-L1 | | | | | | | immunostain | | | | | | | at the | | | | | | | request of | | | | | | | Dr. Glass | | | | | | | Solomon. | | | + + + + + + + | | 2022-10-25 | [facility] | PD-L1 | (missing) | (missing) | | (unavailable | 12:49 | [facility] | (SP263): | | | | ) | | MEDICAL | Negative | | | | | | CENTER | | | | + + + + + + + | | 2022-10-25 | [facility] | Pathology | (missing) | (missing) | | (unavailable | 12:49 | [facility] | Services- | | | | ) | | MEDICAL | [place] | | | | | | CENTER | [place] | | | | | | | [facility] | | | | | | | Laboratory, | | | | | | | [address] | | | | | | | [address] | | | | | | | [address], | | | + + + + + + + | | 2022-10-25 | [facility] | [place] | (missing) | (missing) | | (unavailable | 12:49 | [facility] | [phone] | | | | ) | | MEDICAL | | | | | | | CENTER | | | | + + + + + + + | | 2022-10-25 | [facility] | [place] | (missing) | (missing) | | (unavailable | 12:49 | [facility] | [place] | | | | ) | | MEDICAL | Regional | | | | | | CENTER | Laboratory & | | | | | | | Pathology | | | | | | | Services, | | | | | | | Immunohistoc | | | | | | | hemistry | | | | | | | Laboratory | | | + + + + + + + | | 2022-10-25 | [facility] | [place] | (missing) | (missing) | | (unavailable | 12:49 | [facility] | [place] | | | | ) | | MEDICAL | Regional | | | | | | CENTER | Laboratory | | | | | | | T | | | | | | | Pathology | | | | | | | Services, | | | | | | | Immunohistoc | | | | | | | hemistry | | | | | | | Laboratory | | | + + + + + + + | | 2022-10-25 | [facility] | Received | (missing) | (missing) | | (unavailable | 12:49 | [facility] | [facility] | | | | ) | | MEDICAL | Diagnostics, | | | | | | [facility] | [place], | | | | | | | EB at the | | | | | | | request of | | | | | | | Dr. Glass | | | | | | | Solomon is one | | | | | | | paraffin | | | + + + + + + + | | 2022-10-25 | [facility] | Tumor | (missing) | (missing) | | (unavailable | 12:49 | [facility] | Proportion | | | | ) | | MEDICAL | Score: Less | | | | | | CENTER | than 1% | | | + + + + + + + | | 2022-10-25 | [facility] | [place] | (missing) | (missing) | | (unavailable | 12:49 | [facility] | PD-L1 | | | | ) | | MEDICAL | (SP263) | | | | | | CENTER | Immunohistoc | | | | | | | hemical | | | | | | | Assay | | | + + + + + + + | | 2022-10-25 | [facility] | When | (missing) | (missing) | | (unavailable | 12:49 | [facility] | applicable, | | | | ) | | MEDICAL | appropriate | | | | | | CENTER | positive | | | | | | | controls | | | | | | | and/or | | | | | | | negative | | | | | | | controls | | | | | | | were used | | | | | | | for all | | | | | | | stains | | | + + + + + + + | | 2022-10-25 | [facility] | appropriatel | (missing) | (missing) | | (unavailable | 12:49 | [facility] | y.This test | | | | ) | | MEDICAL | and the | | | | | | CENTER | additional | | | | | | | tests | | | | | | | referred to | | | | | | | were | | | | | | | developed | | | | | | | and their | | | + + + + + + + | | 2022-10-25 | [facility] | characterist | (missing) | (missing) | | (unavailable | 12:49 | [facility] | ics | | | | ) | | MEDICAL | determined | | | | | | CENTER | by the | | | | | | | [place] | | | | | | | [place] | | | | | | | [facility] | | | | | | | Laboratory | | | | | | | and | | | | | | | Pathology | | | | | | | Services, | | | + + + + + + + | | 2022-10-25 | [facility] | fixed tissue | (missing) | (missing) | | (unavailable | 12:49 | [facility] | block | | | | ) | | MEDICAL | labeled | | | | | | CENTER | [id number] | | | | | | | A1 . The | | | | | | | correspondin | | | | | | | g verified | | | | | | | pathology | | | | | | | report dated | | | + + + + + + + | | 2022-10-25 | [facility] | including | (missing) | (missing) | | (unavailable | 12:49 | [facility] | immunohistoc | | | | ) | | MEDICAL | hemical | | | | | | CENTER | stains, | | | | | | | special | | | | | | | stains and | | | | | | | in situ | | | | | | | hybridizatio | | | | | | | n and | | | | | | | reacted | | | + + + + + + + | | 2022-10-25 | [facility] | instrument. | (missing) | (missing) | | (unavailable | 12:49 | [facility] | PD-L1 status | | | | ) | | MEDICAL | is | | | | | | CENTER | determined | | | | | | | by the PD-L1 | | | | | | | expression | | | | | | | in | | | | | | | proportion | | | | | | | of tumor | | | | | | | cells | | | + + + + + + + | | 2022-10-25 | [facility] | negative | (missing) | (missing) | | (unavailable | 12:49 | [facility] | <1%, low | | | | ) | | MEDICAL | expression | | | | | | CENTER | 1-10%, | | | | | | | moderate | | | | | | | expression | | | | | | | 11-49%, and | | | | | | | high | | | | | | | expression | | | | | | | >50%. | | | + + + + + + + | | 2022-10-25 | [facility] | performance | (missing) | (missing) | | (unavailable | 12:49 | [facility] | | | | | ) | | MEDICAL | | | | | | | CENTER | | | | + + + + + + + | | 2022-10-25 | [facility] | pharmDx, | (missing) | (missing) | | (unavailable | 12:49 | [facility] | and found to | | | | ) | | MEDICAL | be | | | | | | CENTER | comparable. | | | + + + + + + + | | 2022-10-25 | [facility] | protein in | (missing) | (missing) | | (unavailable | 12:49 | [facility] | formalin-fix | | | | ) | | MEDICAL | ed, | | | | | | CENTER | paraffin-emb | | | | | | | edded (FFPE) | | | | | | | lung | | | | | | | carcinoma | | | | | | | tissue | | | | | | | stained with | | | + + + + + + + | | 2022-10-25 | [facility] | rabbit | (missing) | (missing) | | (unavailable | 12:49 | [facility] | monoclonal | | | | ) | | MEDICAL | anti-PD-L1 | | | | | | CENTER | clone [id number] | | | | | | | intended for | | | | | | | use in the | | | | | | | assessment | | | | | | | of the PD-L1 | | | + + + + + + + + + | Result panel 74 | + + + + + +-------+ + + | | 2022-11-07 | [facility] | 6.5 | (missing) | (missing) | | (unavailable | 09::07 | [facility] | | | | + + + +-------+ + + + + | Result panel 75 | + + + + + +--------+ + + | | 2022-11-07 | [facility] | 3.39 | (missing) | (missing) | | (unavailable | 09::07 | [facility] | | | | + + + +--------+ + + + + | Result panel 76 | + + + + + +--------+ + + | | 2022-11-07 | [facility] | 10.4 | (missing) | (missing) | | (unavailable | 09:00:07 | [facility] | | | | + + + +--------+ + + + + | Result panel 77 | + + + + + +--------+ + + | | 2022-11-07 | [facility] | 30.0 | (missing) | (missing) | | (unavailable | 09:00:07 | [facility] | | | | + + + +--------+ + + + + | Result panel 78 | + + + + + +--------+ + + | | 2022-11-07 | [facility] | 88.5 | (missing) | (missing) | | (unavailable | 09::07 | [facility] | | | | + + + +--------+ + + + + | Result panel 79 | + + + + + +--------+ + + | | 2022-11-07 | [facility] | 30.6 | (missing) | (missing) | | (unavailable | 09:00:07 | [facility] | | | | + + + +--------+ + + + + | Result panel 80 | + + + + + +--------+ + + | | 2022-11-07 | [facility] | 34.6 | (missing) | (missing) | | (unavailable | 09::07 | [facility] | | | | + + + +--------+ + + + + | Result panel 81 | + + + + + +--------+ + + | | 2022-11-07 | [facility] | 14.8 | (missing) | (missing) | | (unavailable | 09::07 | [facility] | | | | + + + +--------+ + + + + | Result panel 82 | + + + + + +-------+ + + | | 2022-11-07 | [facility] | 202 | (missing) | (missing) | | (unavailable | 09:00:07 | [facility] | | | | + + + +-------+ + + + + | Result panel 83 | + + + + + +--------+ + + | | 2022-11-07 | [facility] | 75.4 | (missing) | (missing) | | (unavailable | 09:00:07 | [facility] | | | | + + + +--------+ + + + + | Result panel 84 | + + + + + +--------+ + + | | 2022-11-07 | [facility] | 11.0 | (missing) | (missing) | | (unavailable | 09:00:07 | [facility] | | | | + + + +--------+ + + + + | Result panel 85 | + + + + + +--------+ + + | | 2022-11-07 | [facility] | 11.8 | (missing) | (missing) | | (unavailable | 09:00:07 | [facility] | | | | + + + +--------+ + + + + | Result panel 86 | + + + + + +-------+ + + | | 2022-11-07 | [facility] | 1.6 | (missing) | (missing) | | (unavailable | 09:00:07 | [facility] | | | | + + + +-------+ + + + + | Result panel 87 | + + + + + +-------+ + + | | 2022-11-07 | [facility] | 0.2 | (missing) | (missing) | | (unavailable | 09:00:07 | [facility] | | | | + + + +-------+ + + + + | Result panel 88 | + + + + + +-------+---------+ + | | 2022-11-07 | [facility] | 103 | mg/dL | (missing) | | (unavailable | 09:00:07 | [facility] | | | | + + + +-------+---------+ + + + | Result panel 89 | + + + + + +------+---------+ + | | 2022-11-07 | [facility] | 26 | mg/dL | (missing) | | (unavailable | 09:00:07 | [facility] | | | | + + + +------+---------+ + + + | Result panel 90 | + + + + + +--------+---------+ + | | 2022-11-07 | [facility] | 0.90 | mg/dL | (missing) | | (unavailable | ::07 | [facility] | | | | + + + +--------+---------+ + + + | Result panel 91 | + + + + + +------+ + + | | 2022-11-07 | [facility] | 95 | (missing) | (missing) | | (unavailable | 09:00:07 | [facility] | | | | + + + +------+ + + + + | Result panel 92 | + + + + + +---------+ + + | | 2022-11-07 | [facility] | 28.88 | (missing) | (missing) | | (unavailable | 09:00:07 | [facility] | | | | + + + +---------+ + + + + | Result panel 93 | + + + + + +-------+ + + | | 2022-11-07 | [facility] | 140 | (missing) | (missing) | | (unavailable | 09:00:07 | [facility] | | | | + + + +-------+ + + + + | Result panel 94 | + + + + + +-------+ + + | | 2022-11-07 | [facility] | 4.3 | (missing) | (missing) | | (unavailable | 09:00:07 | [facility] | | | | + + + +-------+ + + + + | Result panel 95 | + + + + + +-------+ + + | | 2022-11-07 | [facility] | 101 | (missing) | (missing) | | (unavailable | 09:00:07 | [facility] | | | | + + + +-------+ + + + + | Result panel 96 | + + + + + +------+ + + | | 2022-11-07 | [facility] | 32 | (missing) | (missing) | | (unavailable | 09:00:07 | [facility] | | | | + + + +------+ + + + + | Result panel 97 | + + + + + +--------+ + + | | 2022-11-07 | [facility] | 11.3 | (missing) | (missing) | | (unavailable | 09:00:07 | [facility] | | | | + + + +--------+ + + + + | Result panel 98 | + + + + + +--------+---------+ + | | 2022-11-07 | [facility] | 10.4 | mg/dL | (missing) | | (unavailable | 09:00:07 | [facility] | | | | + + + +--------+---------+ + + + | Result panel 99 | + + + + + +-------+ + + | | 2022-11-07 | [facility] | 6.9 | (missing) | (missing) | | (unavailable | 09:00:07 | [facility] | | | | + + + +-------+ + + + + | Result panel 100 | + + + + + +-------+ + + | | 2022-11-07 | [facility] | 3.3 | (missing) | (missing) | | (unavailable | ::07 | [facility] | | | | + + + +-------+ + + + + | Result panel 101 | + + + + + +-------+ + + | | 2022-11-07 | [facility] | 3.6 | (missing) | (missing) | | (unavailable | 09::07 | [facility] | | | | + + + +-------+ + + + + | Result panel 102 | + + + + + +--------+ + + | | 2022-11-07 | [facility] | 0.92 | (missing) | (missing) | | (unavailable | 09::07 | [facility] | | | | + + + +--------+ + + + + | Result panel 103 | + + + + + +-------+ + + | | 2022-11-07 | [facility] | 0.6 | (missing) | (missing) | | (unavailable | 09::07 | [facility] | | | | + + + +-------+ + + + + | Result panel 104 | + + + + + +------+ + + | | 2022-11-07 | [facility] | 42 | (missing) | (missing) | | (unavailable | ::07 | [facility] | | | | + + + +------+ + + + + | Result panel 105 | + + + + + +------+ + + | | 2022-11-07 | [facility] | 31 | (missing) | (missing) | | (unavailable | 09:00:07 | [facility] | | | | + + + +------+ + + + + | Result panel 106 | + + + + + +-------+ + + | | 2022-11-07 | [facility] | 219 | (missing) | (missing) | | (unavailable | 09:00:07 | [facility] | | | | + + + +-------+ + + + + | Result panel 107 | + + + + + +------+ + + | | 2022-11-10 | [facility] | 78 | (missing) | (missing) | | (unavailable | 11:13:07 | [facility] | | | | + + + +------+ + + + + | Result panel 108 | + + + + + +-----+ + + | | 2022-11-10 | [facility] | 5 | (missing) | (missing) | | (unavailable | 11:13:07 | [facility] | | | | + + + +-----+ + + + + | Result panel 109 | + + + + + +-------+ + + | | 2022-11-10 | [facility] | 6.9 | (missing) | (missing) | | (unavailable | 11:13:07 | [facility] | | | | + + + +-------+ + + + + | Result panel 110 | + + + + + +-------+ + + | | 2022-11-10 | [facility] | 3.0 | (missing) | (missing) | | (unavailable | 11:13:07 | [facility] | | | | + + + +-------+ + + + + | Result panel 111 | + + + + + +-------+ + + | | 2022-11-10 | [facility] | 3.9 | (missing) | (missing) | | (unavailable | 11:13:07 | [facility] | | | | + + + +-------+ + + + + | Result panel 112 | + + + + + +--------+ + + | | 2022-11-10 | [facility] | 0.77 | (missing) | (missing) | | (unavailable | 11:13:07 | [facility] | | | | + + + +--------+ + + + + | Result panel 113 | + + + + + +-------+ + + | | 2022-11-10 | [facility] | 1.0 | (missing) | (missing) | | (unavailable | 11:13:07 | [facility] | | | | + + + +-------+ + + + + | Result panel 114 | + + + + + +------+ + + | | 2022-11-10 | [facility] | 54 | (missing) | (missing) | | (unavailable | 11::07 | [facility] | | | | + + + +------+ + + + + | Result panel 115 | + + + + + +------+ + + | | 2022-11-10 | [facility] | 10 | (missing) | (missing) | | (unavailable | 11:13:07 | [facility] | | | | + + + +------+ + + + + | Result panel 116 | + + + + + +------+ + + | | 2022-11-10 | [facility] | 22 | (missing) | (missing) | | (unavailable | 11:13:07 | [facility] | | | | + + + +------+ + + + + | Result panel 117 | + + + + + +-------+ + + | | 2022-11-10 | [facility] | 237 | (missing) | (missing) | | (unavailable | 11:13:07 | [facility] | | | | + + + +-------+ + + + + | Result panel 118 | + + + + + +-----+ + + | | 2022-11-10 | [facility] | 6 | (missing) | (missing) | | (unavailable | 11:13:07 | [facility] | | | | + + + +-----+ + + + + | Result panel 119 | + + + + + +---------+ + + | | 2022-11-10 | [facility] | 1.025 | (missing) | (missing) | | (unavailable | 21:22:07 | [facility] | | | | + + + +---------+ + + + + | Result panel 120 | + + + + + + + + + | | 2022-11-10 | [facility] | NEGATIVE | (missing) | (missing) | | (unavailable | 21:22:07 | [facility] | | | | + + + + + + + + + | Result panel 121 | + + + + + +-------+ + + | | 2022-11-10 | [facility] | 5.5 | (missing) | (missing) | | (unavailable | ::07 | [facility] | | | | + + + +-------+ + + + + | Result panel 122 | + + + + + + + + + | | 2022-11-10 | [facility] | NEGATIVE | (missing) | (missing) | | (unavailable | ::07 | [facility] | | | | + + + + + + + + + | Result panel 123 | + + + + + +-------+ + + | | 2022-11-10 | [facility] | 1.0 | (missing) | (missing) | | (unavailable | | [facility] | | | | + + + +-------+ + + + + | Result panel 124 | + + + + + + + + + | | 2022-11-10 | [facility] | NEGATIVE | (missing) | (missing) | | (unavailable | : | [facility] | | | | + + + + + + + + + | Result panel 125 | + + + + + + + + + | | 2022-11-10 | [facility] | NEGATIVE | (missing) | (missing) | | (unavailable | ::07 | [facility] | | | | + + + + + + + + + | Result panel 126 | + + + + + +-------+ + + | | 2022-11-10 | [facility] | 0-1 | (missing) | (missing) | | (unavailable | : | [facility] | | | | + + + +-------+ + + + + | Result panel 127 | + + + + + +-------+ + + | | 2022-11-10 | [facility] | 2-3 | (missing) | (missing) | | (unavailable | :07 | [facility] | | | | + + + +-------+ + + + + | Result panel 128 | + + + + + + + + + | | 2022-11-10 | [facility] | SQUAMOUS 1+ | (missing) | (missing) | | (unavailable | 07 | [facility] | | | | + + + + + + + + + | Result panel 129 | + + + + + + + + + | | 2022-11-10 | [facility] | NONE SEEN | (missing) | (missing) | | (unavailable | ::07 | [facility] | | | | + + + + + + + + + | Result panel 130 | + + + + + +--------+ + + | | 2022-11-10 | [facility] | RARE | (missing) | (missing) | | (unavailable | ::07 | [facility] | | | | + + + +--------+ + + + + | Result panel 131 | + + + + + + + + + | | 2022-11-10 | [facility] | NONE SEEN | (missing) | (missing) | | (unavailable | ::07 | [facility] | | | | + + + + + + + + + | Result panel 132 | + + + + + +------+ + + | | 2022-11-10 | [facility] | No | (missing) | (missing) | | (unavailable | :07 | [facility] | | | | + + + +------+ + + + + | Result panel 133 | + + + + + + + + + | | 2022-11-10 | [facility] | YELLOW | (missing) | (missing) | | (unavailable | ::07 | [facility] | | | | + + + + + + + + + | Result panel 134 | + + + + + +---------+ + + | | 2022-11-10 | [facility] | CLEAR | (missing) | (missing) | | (unavailable | ::07 | [facility] | | | | + + + +---------+ + + + + | Result panel 135 | + + + + + + + + + | | 2022-11-10 | [facility] | NEGATIVE | (missing) | (missing) | | (unavailable | 21::07 | [facility] | | | | + + + + + + + + + | Result panel 136 | + + + + + + + + + | | 2022-11-10 | [facility] | NEGATIVE | (missing) | (missing) | | (unavailable | 21:22:07 | [facility] | | | | + + + + + + + + + | Result panel 137 | + + + + + + + + + | | 2022-11-10 | [facility] | NEGATIVE | (missing) | (missing) | | (unavailable | 21:22:07 | [facility] | | | | + + + + + + + + + | Result panel 138 | + + + + + +--------+ + + | | 2022-11-11 | [facility] | 10.4 | (missing) | (missing) | | (unavailable | 05:54:07 | [facility] | | | | + + + +--------+ + + + + | Result panel 139 | + + + + + +--------+ + + | | 2022-11-11 | [facility] | 2.86 | (missing) | (missing) | | (unavailable | 05:54:07 | [facility] | | | | + + + +--------+ + + + + | Result panel 140 | + + + + + +-------+ + + | | 2022-11-11 | [facility] | 8.7 | (missing) | (missing) | | (unavailable | 05:54:07 [facility] | | | | + + + +-------+ + + + + | Result panel 141 | + + + + + +--------+ + + | | 2022-11-11 | [facility] | 25.3 | (missing) | (missing) | | (unavailable | [facility]54:07 [facility] | | | | + + + +--------+ + + + + | Result panel 142 | + + + + + +--------+ + + | | 2022-11-11 | [facility] | 88.4 | (missing) | (missing) | | (unavailable | [facility]54:07 [facility] | | | | + + + +--------+ + + + + | Result panel 143 | + + + + + +--------+ + + | | 2022-11-11 | [facility] | 30.5 | (missing) | (missing) | | (unavailable | [facility]54:07 [facility] | | | | + + + +--------+ + + + + | Result panel 144 | + + + + + +--------+ + + | | 2022-11-11 | [facility] | 34.5 | (missing) | (missing) | | (unavailable | [facility]54:07 [facility] | | | | + + + +--------+ + + + + | Result panel 145 | + + + + + +--------+ + + | | 2022-11-11 | [facility] | 15.4 | (missing) | (missing) | | (unavailable | [facility]54:07 [facility] | | | + + + +--------+ + + + + | Result panel 146 | + + + + + +-------+ + + | | 2022-11-11 | [facility] | 228 | (missing) | (missing) | | (unavailable | [facility]54:07 [facility] | | | + + + +-------+ + + + + | Result panel 147 | + + + + + +--------+ + + | | 2022-11-11 | [facility] | 77.2 | (missing) | (missing) | | (unavailable | [facility]:54:07 [facility] | | | | + + + +--------+ + + + + | Result panel 148 | + + + + + +-------+ + + | | 2022-11-11 | [facility] | 6.6 | (missing) | (missing) | | (unavailable | [facility]54:07 [facility] | | | + + + +-------+ + + + + | Result panel 149 | + + + + + +--------+ + + | | 2022-11-11 | [facility] | 15.2 | (missing) | (missing) | | (unavailable | [facility]54:07 [facility] | | | + + + +--------+ + + + + | Result panel 150 | + + + + + +-------+ + + | | 2022-11-11 | [facility] | 0.7 | (missing) | (missing) | | (unavailable | [facility]54:07 [facility] | | | | + + + +-------+ + + + + | Result panel 151 | + + + + + +-------+ + + | | 2022-11-11 | [facility] | 0.3 | (missing) | (missing) | | (unavailable | [facility]54:07 [facility] | | | | + + + +-------+ + + + + | Result panel 152 | + + + + + +-------+---------+ + | | 2022-11-11 | [facility] | 187 | mg/dL | (missing) | | (unavailable | 05:54:07 [facility] | | | | + + + +-------+---------+ + + + | Result panel 153 | + + + + + +------+---------+ + | | 2022-11-11 | [facility] | 19 | mg/dL | (missing) | | (unavailable | 05:54:07 [facility] | | | | + + + +------+---------+ + + + | Result panel 154 | + + + + + +--------+---------+ + | | 2022-11-11 | [facility] | 0.77 | mg/dL | (missing) | | (unavailable | 05:54:07 [facility] | | | | + + + +--------+---------+ + + + | Result panel 155 | + + + + + +-------+ + + | | 2022-11-11 | [facility] | 100 | (missing) | (missing) | | (unavailable | 05:54:07 [facility] | | | | + + + +-------+ + + + + | Result panel 156 | + + + + + +---------+ + + | | 2022-11-11 | [facility] | 24.67 | (missing) | (missing) | | (unavailable | 05:54:07 | [facility] | | | | + + + +---------+ + + + + | Result panel 157 | + + + + + +-------+ + + | | 2022-11-11 | [facility] | 134 | (missing) | (missing) | | (unavailable | 05[facility]54:07 [facility] | | | | + + + +-------+ + + + + | Result panel 158 | + + + + + +-------+ + + | | 2022-11-11 | [facility] | 3.6 | (missing) | (missing) | | (unavailable | 05:54:07 [facility] | | | | + + + +-------+ + + + + | Result panel 159 | + + + + + +------+ + + | | 2022-11-11 | [facility] | 99 | (missing) | (missing) | | (unavailable | 05[facility]54:07 [facility] | | | | + + + +------+ + + + + | Result panel 160 | + + + + + +------+ + + | | 2022-11-11 | [facility] | 27 | (missing) | (missing) | | (unavailable | 05:54:07 [facility] | | | | + + + +------+ + + + + | Result panel 161 | + + + + + +--------+ + + | | 2022-11-11 | [facility] | 11.6 | (missing) | (missing) | | (unavailable | 05:54:07 [facility] | | | | + + + +--------+ + + + + | Result panel 162 | + + + + + +-------+---------+ + | | 2022-11-11 | [facility] | 8.6 | mg/dL | (missing) | | (unavailable | 05:54:07 | [facility] | | | | + + + +-------+---------+ + Social History + + + + | date | description | facility | + + + + | 2022-08-31 00:00 | Unknown if ever smoked | [facility] | + + + + | 2022-10-20 00:00 | Unknown if ever smoked | [facility] | + + + + | 2022-10-23 00:00 | Unknown if ever smoked | [facility] | + + + + | 2022-11-07 00:00 | Unknown if ever smoked | [facility] | + + + + | 2022-11-11 00:00 | Unknown if ever smoked | [facility] | + + + + Vital Signs [...] 210 | lb | + + + +---------+ | 2022-10-20 00:00 | BMI | 29.3 | kg/m2 | + + + +---------+ | 2022-10-20 00:00 | BP_diastolic | 92 | mmHg | + + + +---------+ | 2022-10-20 00:00 | BP_systolic | 131 | mmHg | + + + +---------+ | 2022-10-20 00:00 | heart_rate | 70 | /min | + + + +---------+ | 2022-10-20 00:00 | height_metric | 180.34 | cm | + + + +---------+ | 2022-10-20 00:00 | height_standard | 71 | in | + + + +---------+ | 2022-10-20 00:00 | o2_saturation | 96 | % | + + + +---------+ | 2022-10-20 00:00 | respiration_rate | 17 | /min | + + + +---------+ | 2022-10-20 00:00 | temperature_metric | 36.39 | C | | | | | | + + + +---------+ | 2022-10-20 00:00 | | 97.5 | F | | | temperature_standar | | | | | d | | | + + + +---------+ | 2022-10-20 00:00 | weight_metric | 95.25 | kg | + + + +---------+ | 2022-10-20 00:00 | weight_standard | 209.99 | lb | + + + +---------+ | 2022-10-20 00:00 | weight_standard | 210 | lb | + + + +---------+ | 2022-10-23 00:00 | BMI | 29.3 | kg/m2 | + + + +---------+ | 2022-10-23 00:00 | BP_diastolic | 111 | mmHg | + + + +---------+ | 2022-10-23 00:00 | BP_systolic | 176 | mmHg | + + + +---------+ | 2022-10-23 00:00 | heart_rate | 111 | /min | + + + +---------+ | 2022-10-23 00:00 | height_metric | 180.34 | cm | + + + +---------+ | 2022-10-23 00:00 | height_standard | 71 | in | + + + +---------+ | 2022-10-23 00:00 | o2_saturation | 98 | % | + + + +---------+ | 2022-10-23 00:00 | respiration_rate | 21 | /min | + + + +---------+ | 2022-10-23 00:00 | temperature_metric | 36.89 | C | | | | | | + + + +---------+ | 2022-10-23 00:00 | | 98.4 | F | | | temperature_standar | | | | | d | | | + + + +---------+ | 2022-10-23 00:00 | weight_metric | 95.25 | kg | + + + +---------+ | 2022-10-23 00:00 | weight_standard | 209.99 | lb | + + + +---------+ | 2022-10-23 00:00 | weight_standard | 210 | lb | + + + +---------+ | 2022-11-07 00:00 | BP_diastolic | 82 | mmHg | + + + +---------+ | 2022-11-07 00:00 | BP_diastolic | 94 | mmHg | + + + +---------+ | 2022-11-07 00:00 | BP_systolic | 141 | mmHg | + + + +---------+ | 2022-11-07 00:00 | BP_systolic | 177 | mmHg | + + + +---------+ | 2022-11-07 00:00 | heart_rate | 13 | /min | + + + +---------+ | 2022-11-07 00:00 | heart_rate | 97 | /min | + + + +---------+ | 2022-11-07 00:00 | o2_saturation | 96 | % | + + + +---------+ | 2022-11-07 00:00 | o2_saturation | 98 | % | + + + +---------+ | 2022-11-07 00:00 | respiration_rate | 16 | /min | + + + +---------+ | 2022-11-07 00:00 | respiration_rate | 18 | /min | + + + +---------+ | 2022-11-07 00:00 | temperature_metric | 36.33 | C | | | | | | + + + +---------+ | 2022-11-07 00:00 | temperature_metric | 36.67 | C | | | | | | + + + +---------+ | 2022-11-07 00:00 | | 97.4 | F | | | temperature_standar | | | | | d | | | + + + +---------+ | 2022-11-07 00:00 | | 98 | F | | | temperature_standar | | | | | d | | | + + + +---------+ | 2022-11-10 00:00 | BMI | 29.4 | kg/m2 | + + + +---------+ | 2022-11-10 00:00 | height_metric | 177.8 | cm | + + + +---------+ | 2022-11-10 00:00 | height_standard | 70 | in | + + + +---------+ | 2022-11-10 00:00 | weight_metric | 93 | kg | + + + +---------+ | 2022-11-10 00:00 | weight_standard | 205.03 | lb | + + + +---------+ | 2022-11-11 00:00 | BP_diastolic | 76 | mmHg | + + + +---------+ | 2022-11-11 00:00 | BP_systolic | 150 | mmHg | + + + +---------+ | 2022-11-11 00:00 | heart_rate | 97 | /min | + + + +---------+ | 2022-11-11 00:00 | o2_saturation | 98 | % | + + + +---------+ | 2022-11-11 00:00 | respiration_rate | 18 | /min | + + + +---------+ | 2022-11-11 00:00 | temperature_metric | 36.67 | C | | | | | | + + + +---------+ | 2022-11-11 00:00 | | 98 | F | | | temperature_standar | | | | | d | | | + + + +---------+"
--- OUTSIDE RECORDS SUMMARY | ~2022-12-13 | XMS | Continuity of Care Document ---
Demographics + + + | Address | [address] | | | [place] [address] | + + + | Preferred Language | Unknown | + + + | Marital Status | | + + + | Temple Affiliation | Unknown | + + + | Race | White | + + + | Ethnic Group | Not or | + + + Author + + + | Author | [facility] | + + + | Organization | [facility] | + + + | Address | [address] | | | [place] [address] | + + + | Phone | | + + + Care Team Providers + + + + | Care Signal Timer Name | Role | Phone | + [...] + | 2022-10-20 00:00 | ONDANSETRON | [facility] | + + + + | 2022-10-23 00:00 | ONDANSETRON | [facility] | + + + + | 2022-11-07 00:00 | ONDANSETRON | [facility] | + + + + | 2022-11-11 00:00 | ONDANSETRON | [facility] | + + + + | 2022-11-11 00:00 | OXYCODONE HCL | [facility] | + + + + | 2022-08-31 00:00 | GABAPENTIN | [facility] | + + + + | 2022-10-20 00:00 | MELOXICAM | [facility] | + + + + | 2022-10-23 00:00 | MELOXICAM | [facility] | + + + + | 2022-11-07 00:00 | MELOXICAM | [facility] | + + + + | 2022-11-11 00:00 | MELOXICAM | [facility] | + + + + | 2022-11-11 00:00 | Lidocaine | [facility] | + + + + | 2022-10-20 00:00 | BACLOFEN | [facility] | + + + + | 2022-10-23 00:00 | BACLOFEN | [facility] | + + + + | 2022-11-07 00:00 | BACLOFEN | [facility] | + + + + | 2022-11-11 00:00 | BACLOFEN | [facility] | + + + + | 2022-10-20 00:00 | DEXAMETHASONE | [facility] | + + + + | 2022-10-23 00:00 | DEXAMETHASONE | [facility] | + + + + | 2022-11-07 00:00 | DEXAMETHASONE | [facility] | + + + + | 2022-11-11 00:00 | DEXAMETHASONE | [facility] | + + + + | 2022-10-20 00:00 | DIAZEPAM | [facility] | + + + + | 2022-10-23 00:00 | DIAZEPAM | [facility] | + + + + | 2022-11-07 00:00 | DIAZEPAM | [facility] | + + + + | 2022-11-11 00:00 | DIAZEPAM | [facility] | + + + + | 2022-11-11 00:00 | ACETAMINOPHEN | [facility] | + + + + | 2022-11-11 00:00 | CELECOXIB | [facility] | + + + + | 2022-10-20 00:00 | Aspirin | [facility] | + + + + | 2022-10-23 00:00 | Aspirin | [facility] | + + + + | 2022-11-07 00:00 | Aspirin | [facility] | + + + + | 2022-11-11 00:00 | Aspirin | [facility] | + + + + | 2022-11-11 00:00 | GABAPENTIN | [facility] | + + + + | 2022-08-31 00:00 | predniSONE | [facility] | + + + + | 2022-10-20 00:00 | SUCRALFATE | [facility] | + + + + | 2022-10-23 00:00 | SUCRALFATE | [facility] | + + + + | 2022-11-07 00:00 | SUCRALFATE | [facility] | + + + + | 2022-11-11 00:00 | SUCRALFATE | [facility] | + + + + | 2022-11-11 00:00 | ACETAMINOPHEN | [facility] | + + + + | 2022-10-20 00:00 | PANTOPRAZOLE SODIUM | [facility] | + + + + | 2022-10-23 00:00 | PANTOPRAZOLE SODIUM | [facility] | + + + + | 2022-11-11 00:00 | PANTOPRAZOLE SODIUM | [facility] | + + + + | 2022-10-20 00:00 | Pregabalin | [facility] | + + + + | 2022-10-23 00:00 | Pregabalin | [facility] | + + + + | 2022-11-11 00:00 | Pregabalin | [facility] | + + + + | 2022-10-20 00:00 | PREGABALIN | [facility] | + + + + | 2022-10-20 00:00 | PREGABALIN | [facility] | + + + + | 2022-08-31 00:00 | HYDROCODONE | [facility] | | | BIT/ACETAMINOPHEN | | + + + + | 2022-08-31 00:00 | HYDROmorphone HCL | [facility] | + + + + | 2022-08-31 00:00 | HYDROmorphone HCL | [facility] | + + + + | 2022-08-31 00:00 | HYDROmorphone HCL | [facility] | + + + + | 2022-08-31 00:00 | HYDROmorphone HCL | [facility] | + + + + | 2022-08-31 00:00 | HYDROmorphone HCL | [facility] | + + + + | 2022-10-20 00:00 | HYDROMORPHONE HCL | [facility] | + + + + | 2022-10-20 00:00 | HYDROMORPHONE HCL | [facility] | + + + + | 2022-10-20 00:00 | HYDROMORPHONE HCL | [facility] | + + + + | 2022-10-20 00:00 | HYDROMORPHONE HCL | [facility] | + + + + | 2022-10-20 00:00 | LOSARTAN POTASSIUM | [facility] | + + + + | 2022-10-23 00:00 | LOSARTAN POTASSIUM | [facility] | + + + + | 2022-11-07 00:00 | LOSARTAN POTASSIUM | [facility] | + + + + | 2022-11-11 00:00 | LOSARTAN POTASSIUM | [facility] | + + + + | 2022-08-31 00:00 | LOSARTAN POTASSIUM | [facility] | + + + + Problems + + + + | date | description | facility | + + + + | 2022-08-31 00:00 | Hypertension | [facility] | + + + + | 2022-08-31 00:00 | Hypertension | [facility] | + + + + | 2022-08-31 00:00 | Hypertension | [facility] | + + + + | 2022-08-31 00:00 | Hypertension | [facility] | + + + + | 2022-08-31 00:00 | Hypertension | [facility] | + + + + | 2022-08-31 00:00 | Acute sciatica | [facility] | + + + + | 2022-08-31 00:00 | Acute sciatica | [facility] | + + + + | 2022-08-31 00:00 | Acute sciatica | [facility] | + + + + | 2022-08-31 00:00 | Acute sciatica | [facility] | + + + + | 2022-08-31 00:00 | Acute sciatica | [facility] | + + + + | 2022-08-31 09:41 | LUMBAGO WITH SCIATICA, | [facility] | | | UNSPECIFIED SIDE | | + + + + | 2022-08-31 09:41 | LOW BACK PAIN, UNSPECIFIED | [facility] | | | | | + + + + | 2022-08-31 09:41 | OTHER [facility] (CURRENT) | [facility] | | | DRUG THERAPY | | + + + + | 2022-10-20 00:00 | Lytic bone lesion of hip | [facility] | + + + + | 2022-10-20 00:00 | Lytic bone lesion of hip | [facility] | + + + + | 2022-10-20 00:00 | Lytic bone lesion of hip | [facility] | + + + + | 2022-10-20 00:00 | Lytic bone lesion of hip | [facility] | + + + + | 2022-10-20 00:00 | Bone lesion | [facility] | + + + + | 2022-10-20 00:00 | Bone lesion | [facility] | + + + + | 2022-10-20 00:00 | Bone lesion | [facility] | + + + + | 2022-10-20 00:00 | Bone lesion | [facility] | + + + + | 2022-10-20 [...] + + + | 2022-10-20 20:41 | [facility] (CURRENT) USE OF | [facility] | | | ASPIRIN | | + + + + | 2022-10-20 20:41 | OTHER [facility] (CURRENT) | [facility] | | | DRUG THERAPY | | + + + + | 2022-10-23 00:00 | Multiple myeloma | [facility] | + + + + | 2022-10-23 00:00 | Multiple myeloma | [facility] | + + + + | 2022-10-23 00:00 | Multiple myeloma | [facility] | + + + + | 2022-10-23 00:00 | Intertrochanteric fracture | [facility] | | | of left femur | | + + + + | 2022-10-23 00:00 | Intertrochanteric fracture | [facility] | | | of left femur | | + + + + | 2022-10-23 00:00 | Intertrochanteric fracture | [facility] | | | of left femur | [...] + + + | 2022-10-23 16:49 | PUNCH PRESS FEEDER (CURRENT) USE OF | [facility] | | | ASPIRIN | | + + + + | 2022-10-23 16:49 | OTHER PUNCH PRESS FEEDER (CURRENT) | [facility] | | | DRUG [...] + + | 2022-11-07 08:05 | OTHER PUNCH PRESS FEEDER (CURRENT) | [facility] | | | DRUG THERAPY | | + + + + | 2022-11-10 00:00 | Metastatic malignant | [facility] | | | neoplasm | | + + + + | 2022-11-10 00:00 | Avulsion of scapula | [facility] | + + + + | 2022-11-10 [...] + + + | 2022-11-10 10:43 | [facility] (CURRENT) USE OF | [facility] | | | ASPIRIN | | + + + + | 2022-11-10 10:43 | OTHER [facility] (CURRENT) | [facility] | | | DRUG [...] (missing) | | (unavailable | 19:31:07 | [facility] | | | | | [...] | | SOLID TUMOR | 12:48:56 | [facility] | Separate | | | | NGS [...] (missing) | | (unavailable | 12:49 | [facility] | [address] | | | | ) | | MEDICAL | [address] | | | | | | CENTER | [place], | | | | | | | [place], [address] | | | | | | | CLIA#[id number] | | | | | | | [...] (missing) | | (unavailable | 12:49 | [facility] | identifies | | | | ) [...] (missing) | | (unavailable | 12:49 | [facility] | [phone] | | | | ) | | MEDICAL | | | | | | | CENTER | | | | + + + + + + + | | 2022-10-25 | [facility] | [facility], | (missing) | (missing) | | (unavailable | 12:49 | [facility] | [address] | | | | ) | | MEDICAL | | | | | | | CENTER | | | | + + + + + + + | | 2022-10-25 | [facility] | CASE #: | (missing) | (missing) | | (unavailable | 12:49 | [facility] | [id number] | | | | ) | | MEDICAL | | | | | | | CENTER | | | | + + + + + + + | | 2022-10-25 | [facility] | CT-guided | (missing) | (missing) | | (unavailable | 12:49 | [facility] | needle core | | | | ) | | MEDICAL | biopsies. | | | | | | CENTER | | | | + + + + + + + | | 2022-10-25 | [facility] | Clinical | (missing) | (missing) | | (unavailable | 12:49 | [facility] | Information | | | | ) [...] (missing) | | (unavailable | 12:49 | [facility] | 1960 | | | | ) | | MEDICAL | AGE: 62 | | | | | | CENTER | years SEX: M | | | | | | | | | | + + + + + + + | | 2022-10-25 | [facility] | Diagnosis | (missing) | (missing) | | (unavailable | 12:49 | [facility] | | | | | ) | | MEDICAL | | | | | | | CENTER | | | | + + + + + + + | | 2022-10-25 | [facility] | | (missing) | (missing) | | (unavailable | 12:49 | [facility] | Electronical | | | | ) [...] (missing) | | (unavailable | 12:49 | [facility] | Description | | | | ) | | MEDICAL | | | | | | | CENTER | | | | + + + + + + + | | 2022-10-25 | [facility] | Immunohistoc | (missing) | (missing) | | (unavailable | 12:49 | [facility] | hemistry | | | | ) | | MEDICAL | with [facility] | | | | | | CENTER [...] (missing) | | (unavailable | 12:49 | [facility] | Not | | | | ) | | MEDICAL | applicable | | | | | | CENTER | | | | + + + + + + + | | 2022-10-25 | [facility] | MRN: | (missing) | (missing) | | (unavailable | 12:49 | [facility] | [id number] | | | | ) | | MEDICAL | | | | | | | CENTER | | | | + + + + + + + | | 2022-10-25 | [facility] | MSG/MSG | (missing) | (missing) | | (unavailable | 12:49 | [facility] | | | | | ) | | MEDICAL | | | | | | | CENTER | | | | + + + + + + + | | 2022-10-25 | [facility] | Note: | (missing) | (missing) | | (unavailable | 12:49 | [facility] | [facility] | | | | ) | | [...] (missing) | | (unavailable | 12:49 | [facility] | PHYSICIAN, | | | | ) | | MEDICAL | NOT ONTABLE | | | | | | CENTER | | | | + + + + + + + | | 2022-10-25 | [facility] | OUTSIDE | (missing) | (missing) | | (unavailable | 12:49 | [facility] | CASE REPORT | | | | ) | | MEDICAL | | | | | | | CENTER | | | | + + + + + + + | | 2022-10-25 | [facility] | OptiView DAB | (missing) | (missing) | | (unavailable | 12:49 | [facility] | IHC | | | | ) [...] (missing) | | (unavailable | 12:49 | [facility] | block | | | | ) | | MEDICAL | [id number] | | | | | | CENTER [...] (missing) | | (unavailable | 12:49 | [facility] [place] | ([id number]): | | | | ) | | MEDICAL | Negative | | | | | | CENTER | | | | + + + + + + + | | 2022-10-25 | [facility] | Pathology | (missing) | (missing) | | (unavailable | 12:49 | [facility] | Services- | | | | ) | | MEDICAL | [facility] | | | | | | CENTER | [place] | | | | | | [facility] | | | | | | | [facility], | | | | | | | [address] | | | | | | | [address] | | | | | | | [address], | | | + + + + + + + | | 2022-10-25 | [facility] | [place] | (missing) | (missing) | | (unavailable | 12:49 | [facility] | [phone] | | | | ) | | MEDICAL | | | | | | | CENTER | | | | + + + + + + + | | 2022-10-25 | [facility] | [address] | (missing) | (missing) | | (unavailable | 12:49 | [facility] | [place] | | | | ) | | [...] + | | 2022-10-25 | [facility] | [address] | (missing) | (missing) | | (unavailable | 12:49 | [facility] | [place] | | | | ) | | [...] (unavailable | 12:49 | [facility] | [facility] | | | | ) | | MEDICAL | Diagnostics, | | | | | | [facility] | [place], | | | | | | | [...] (missing) | | (unavailable | 12:49 | [facility] | Proportion | | | | ) | | MEDICAL | Score: Less | | | | | | CENTER | than 1% | | | + + + + + + + | | 2022-10-25 | [facility] | [facility] | (missing) | (missing) | | (unavailable | 12:49 | [facility] | PD-L1 | | | | ) [...] (missing) | | (unavailable | 12:49 | [facility] | applicable, | | | | ) [...] (missing) | | (unavailable | 12:49 | [facility] [place] | ics | | | | ) | | MEDICAL | determined | | | | | | CENTER | by the | | | | | | | [facility] | | | | | | | [place] | | | | | | | [...] | | | | | CENTER | [id number] | | | | | | | [...] (missing) | | (unavailable | 12:49 | [facility] | immunohistoc | | | | ) [...] (missing) | | (unavailable | 12:49 | [facility] | PD-L1 status | | | | [...] (missing) | | (unavailable | 12:49 | [facility] | monoclonal | | | | ) [...] | [facility] | + + + + | 2022-10-20 00:00 | Unknown if ever smoked | [facility] | + + + + | 2022-10-23 00:00 | Unknown if ever smoked | [facility] | + + + + | 2022-11-07 00:00 | Unknown if ever smoked | [facility] | + + + + | 2022-11-11 00:00 | Unknown if ever smoked | [facility] | + + + + Vital Signs [...]
--- OUTSIDE RECORDS SUMMARY | ~2022-12-13 | XMS | Continuity of Care Document ---
Demographics + + + | Address | [address] | | | [place] [address] | + + + | Preferred Language | Unknown | + + + | Marital Status | | + + + | Anabaptist Affiliation | Unknown | + + + | Race | White | + + + | Ethnic Group | Not or | + + + Author + + + | Author | [facility] | + + + | Organization | [facility] | + + + | Address | [address] | | | [place] [address] | + + + | Phone | | + + + Care Team Providers + + + + | Care Historian Research Assistant Name | Role | Phone | + [...] + | 2022-10-20 00:00 | ONDANSETRON | [facility] | + + + + | 2022-10-23 00:00 | ONDANSETRON | [facility] | + + + + | 2022-11-07 00:00 | ONDANSETRON | [facility] | + + + + | 2022-11-11 00:00 | ONDANSETRON | [facility] | + + + + | 2022-11-11 00:00 | OXYCODONE HCL | [facility] | + + + + | 2022-08-31 00:00 | GABAPENTIN | [facility] | + + + + | 2022-10-20 00:00 | MELOXICAM | [facility] | + + + + | 2022-10-23 00:00 | MELOXICAM | [facility] | + + + + | 2022-11-07 00:00 | MELOXICAM | [facility] | + + + + | 2022-11-11 00:00 | MELOXICAM | [facility] | + + + + | 2022-11-11 00:00 | Lidocaine | [facility] | + + + + | 2022-10-20 00:00 | BACLOFEN | [facility] | + + + + | 2022-10-23 00:00 | BACLOFEN | [facility] | + + + + | 2022-11-07 00:00 | BACLOFEN | [facility] | + + + + | 2022-11-11 00:00 | BACLOFEN | [facility] | + + + + | 2022-10-20 00:00 | DEXAMETHASONE | [facility] | + + + + | 2022-10-23 00:00 | DEXAMETHASONE | [facility] | + + + + | 2022-11-07 00:00 | DEXAMETHASONE | [facility] | + + + + | 2022-11-11 00:00 | DEXAMETHASONE | [facility] | + + + + | 2022-10-20 00:00 | DIAZEPAM | [facility] | + + + + | 2022-10-23 00:00 | DIAZEPAM | [facility] | + + + + | 2022-11-07 00:00 | DIAZEPAM | [facility] | + + + + | 2022-11-11 00:00 | DIAZEPAM | [facility] | + + + + | 2022-11-11 00:00 | ACETAMINOPHEN | [facility] | + + + + | 2022-11-11 00:00 | CELECOXIB | [facility] | + + + + | 2022-10-20 00:00 | Aspirin | [facility] | + + + + | 2022-10-23 00:00 | Aspirin | [facility] | + + + + | 2022-11-07 00:00 | Aspirin | [facility] | + + + + | 2022-11-11 00:00 | Aspirin | [facility] | + + + + | 2022-11-11 00:00 | GABAPENTIN | [facility] | + + + + | 2022-08-31 00:00 | predniSONE | [facility] | + + + + | 2022-10-20 00:00 | SUCRALFATE | [facility] | + + + + | 2022-10-23 00:00 | SUCRALFATE | [facility] | + + + + | 2022-11-07 00:00 | SUCRALFATE | [facility] | + + + + | 2022-11-11 00:00 | SUCRALFATE | [facility] | + + + + | 2022-11-11 00:00 | ACETAMINOPHEN | [facility] | + + + + | 2022-10-20 00:00 | PANTOPRAZOLE SODIUM | [facility] | + + + + | 2022-10-23 00:00 | PANTOPRAZOLE SODIUM | [facility] | + + + + | 2022-11-11 00:00 | PANTOPRAZOLE SODIUM | [facility] | + + + + | 2022-10-20 00:00 | Pregabalin | [facility] | + + + + | 2022-10-23 00:00 | Pregabalin | [facility] | + + + + | 2022-11-11 00:00 | Pregabalin | [facility] | + + + + | 2022-10-20 00:00 | PREGABALIN | [facility] | + + + + | 2022-10-20 00:00 | PREGABALIN | [facility] | + + + + | 2022-08-31 00:00 | HYDROCODONE | [facility] | | | BIT/ACETAMINOPHEN | | + + + + | 2022-08-31 00:00 | HYDROmorphone HCL | [facility] | + + + + | 2022-08-31 00:00 | HYDROmorphone HCL | [facility] | + + + + | 2022-08-31 00:00 | HYDROmorphone HCL | [facility] | + + + + | 2022-08-31 00:00 | HYDROmorphone HCL | [facility] | + + + + | 2022-08-31 00:00 | HYDROmorphone HCL | [facility] | + + + + | 2022-10-20 00:00 | HYDROMORPHONE HCL | [facility] | + + + + | 2022-10-20 00:00 | HYDROMORPHONE HCL | [facility] | + + + + | 2022-10-20 00:00 | HYDROMORPHONE HCL | [facility] | + + + + | 2022-10-20 00:00 | HYDROMORPHONE HCL | [facility] | + + + + | 2022-10-20 00:00 | LOSARTAN POTASSIUM | [facility] | + + + + | 2022-10-23 00:00 | LOSARTAN POTASSIUM | [facility] | + + + + | 2022-11-07 00:00 | LOSARTAN POTASSIUM | [facility] | + + + + | 2022-11-11 00:00 | LOSARTAN POTASSIUM | [facility] | + + + + | 2022-08-31 00:00 | LOSARTAN POTASSIUM | [facility] | + + + + Problems + + + + | date | description | facility | + + + + | 2022-08-31 00:00 | Hypertension | [facility] | + + + + | 2022-08-31 00:00 | Hypertension | [facility] | + + + + | 2022-08-31 00:00 | Hypertension | [facility] | + + + + | 2022-08-31 00:00 | Hypertension | [facility] | + + + + | 2022-08-31 00:00 | Hypertension | [facility] | + + + + | 2022-08-31 00:00 | Acute sciatica | [facility] | + + + + | 2022-08-31 00:00 | Acute sciatica | [facility] | + + + + | 2022-08-31 00:00 | Acute sciatica | [facility] | + + + + | 2022-08-31 00:00 | Acute sciatica | [facility] | + + + + | 2022-08-31 00:00 | Acute sciatica | [facility] | + + + + | 2022-08-31 09:41 | LUMBAGO WITH SCIATICA, | [facility] | | | UNSPECIFIED SIDE | | + + + + | 2022-08-31 09:41 | LOW BACK PAIN, UNSPECIFIED | [facility] | | | | | + + + + | 2022-08-31 09:41 | OTHER LONG-TERM (CURRENT) | [facility] | | | DRUG THERAPY | | + + + + | 2022-10-20 00:00 | Lytic bone lesion of hip | [facility] | + + + + | 2022-10-20 00:00 | Lytic bone lesion of hip | [facility] | + + + + | 2022-10-20 00:00 | Lytic bone lesion of hip | [facility] | + + + + | 2022-10-20 00:00 | Lytic bone lesion of hip | [facility] | + + + + | 2022-10-20 00:00 | Bone lesion | [facility] | + + + + | 2022-10-20 00:00 | Bone lesion | [facility] | + + + + | 2022-10-20 00:00 | Bone lesion | [facility] | + + + + | 2022-10-20 00:00 | Bone lesion | [facility] | + + + + [...] + + + | 2022-10-20 20:41 | LONG-TERM (CURRENT) USE OF | [facility] | | | ASPIRIN | | + + + + | 2022-10-20 20:41 | OTHER LONG-TERM (CURRENT) | [facility] | | | DRUG THERAPY | | + + + + | 2022-10-23 00:00 | Multiple myeloma | [facility] | + + + + | 2022-10-23 00:00 | Multiple myeloma | [facility] | + + + + | 2022-10-23 00:00 | Multiple myeloma | [facility] | + + + + | 2022-10-23 00:00 | Intertrochanteric fracture | [facility] | | | of left femur | | + + + + | 2022-10-23 00:00 | Intertrochanteric fracture | [facility] | | | of left femur | | + + + + | 2022-10-23 00:00 | Intertrochanteric fracture | [facility] | | | of left femur | [...] + + + | 2022-10-23 16:49 | DICTAPHONE TYPIST (CURRENT) USE OF | [facility] | | | ASPIRIN | | + + + + | 2022-10-23 16:49 | OTHER DICTAPHONE TYPIST (CURRENT) | [facility] | | | DRUG [...] + + | 2022-11-07 08:05 | OTHER DICTAPHONE TYPIST (CURRENT) | [facility] | | | DRUG THERAPY | | + + + + | 2022-11-10 00:00 | Metastatic malignant | [facility] | | | neoplasm | | + + + + | 2022-11-10 00:00 | Avulsion of scapula | [facility] | + + + + | 2022-11-10 [...] + + + | 2022-11-10 10:43 | LONG-TERM (CURRENT) USE OF | [facility] | | | ASPIRIN | | + + + + | 2022-11-10 10:43 | OTHER LONG-TERM (CURRENT) | [facility] | | | DRUG [...] (missing) | | (unavailable | 19:31:07 | Tylre | | | | | ) | [...] | | SOLID TUMOR | 12:48:56 | [facility] | Separate | | | | NGS [...] (missing) | | (unavailable | 12:49 | [facility] | [address] | | | | ) | | MEDICAL | [address] | | | | | | CENTER | [place], | | | | | | | [place], [address] | | | | | | | CLIA#[id number] | | | | | | | [...] (missing) | | (unavailable | 12:49 | [facility] | identifies | | | | ) [...] (missing) | | (unavailable | 12:49 | [facility] | [id number] | | | | ) | | MEDICAL | | | | | | | CENTER | | | | + + + + + + + | | 2022-10-25 | [facility] | [place]ARLOS, | (missing) | (missing) | | (unavailable | 12:49 | [facility] | [facility] [address] | | | | ) | | MEDICAL | | | | | | | CENTER | | | | + + + + + + + | | 2022-10-25 | [facility] | CASE #: | (missing) | (missing) | | (unavailable | 12:49 | [facility] | [id number] | | | | ) | | MEDICAL | | | | | | | CENTER | | | | + + + + + + + | | 2022-10-25 | [facility] | CT-guided | (missing) | (missing) | | (unavailable | 12:49 | [facility] | needle core | | | | ) | | MEDICAL | biopsies. | | | | | | CENTER | | | | + + + + + + + | | 2022-10-25 | [facility] | Clinical | (missing) | (missing) | | (unavailable | 12:49 | [facility] | Information | | | | ) [...] (missing) | | (unavailable | 12:49 | [facility] | 1960 | | | | ) | | MEDICAL | AGE: 62 | | | | | | CENTER | years SEX: M | | | | | | | | | | + + + + + + + | | 2022-10-25 | [facility] | Diagnosis | (missing) | (missing) | | (unavailable | 12:49 | [facility] | | | | | ) | | MEDICAL | | | | | | | CENTER | | | | + + + + + + + | | 2022-10-25 | [facility] | | (missing) | (missing) | | (unavailable | 12:49 | [facility] | Electronical | | | | ) [...] (missing) | | (unavailable | 12:49 | [facility] | Description | | | | ) | | MEDICAL | | | | | | | CENTER | | | | + + + + + + + | | 2022-10-25 | [facility] | Immunohistoc | (missing) | (missing) | | (unavailable | 12:49 | [facility] | hemistry | | | | ) | | MEDICAL | with Ricardo | | | | | | CENTER [...] (missing) | | (unavailable | 12:49 | [facility] | Not | | | | ) | | MEDICAL | applicable | | | | | | CENTER | | | | + + + + + + + | | 2022-10-25 | [facility] | MRN: | (missing) | (missing) | | (unavailable | 12:49 | [facility] | [id number] | | | | ) | | MEDICAL | | | | | | | CENTER | | | | + + + + + + + | | 2022-10-25 | [facility] | MSG/MSG | (missing) | (missing) | | (unavailable | 12:49 | [facility] | | | | | ) | | MEDICAL | | | | | | | CENTER | | | | + + + + + + + | | 2022-10-25 | [facility] | Note: | (missing) | (missing) | | (unavailable | 12:49 | [facility] | Ricardo | | | | ) | | [...] (missing) | | (unavailable | 12:49 | [facility] | PHYSICIAN, | | | | ) | | MEDICAL | NOT ONTABLE | | | | | | CENTER | | | | + + + + + + + | | 2022-10-25 | [facility] | OUTSIDE | (missing) | (missing) | | (unavailable | 12:49 | [facility] | CASE REPORT | | | | ) | | MEDICAL | | | | | | | CENTER | | | | + + + + + + + | | 2022-10-25 | [facility] | OptiView DAB | (missing) | (missing) | | (unavailable | 12:49 | [facility] | IHC | | | | ) [...] (missing) | | (unavailable | 12:49 | [facility] | block | | | | ) | | MEDICAL | [id number] | | | | | | CENTER [...] (missing) | | (unavailable | 12:49 | [facility] | ([id number]): | | | | ) | | MEDICAL | Negative | | | | | | CENTER | | | | + + + + + + + | | 2022-10-25 | [facility] | Pathology | (missing) | (missing) | | (unavailable | 12:49 | [facility] | Services- | | | | ) | | MEDICAL | [facility] | | | | | | CENTER | [place] | | | | | | | [facility] | | | | | | | [facility], | | | | | | | [address] | | | | | | | [address] | | | | | | | [address], | | | + + + + + + + | | 2022-10-25 | [facility] | [place] | (missing) | (missing) | | (unavailable | 12:49 | [facility] | [id number] | | | | ) | | MEDICAL | | | | | | | CENTER | | | | + + + + + + + | | 2022-10-25 | [facility] | [facility] | (missing) | (missing) | | (unavailable | 12:49 | [facility] | [place] | | | | ) | | [...] + | | 2022-10-25 | [facility] | [facility] | (missing) | (missing) | | (unavailable | 12:49 | [facility] | [place] | | | | ) | | [...] (unavailable | 12:49 | [facility] | from [facility] | | | | ) | | MEDICAL | Diagnostics, | | | | | | [place] | [place], | | | | | | | [...] (missing) | | (unavailable | 12:49 | [facility] | Proportion | | | | ) | | MEDICAL | Score: Less | | | | | | CENTER | than 1% | | | + + + + + + + | | 2022-10-25 | [facility] | [facility] | (missing) | (missing) | | (unavailable | 12:49 | [facility] | PD-L1 | | | | ) [...] (missing) | | (unavailable | 12:49 | [facility] | applicable, | | | | ) [...] (missing) | | (unavailable | 12:49 | [facility] | ics | | | | ) | | MEDICAL | determined | | | | | | CENTER | by the | | | | | | | [facility] | | | | | | | [place] | | | | | | | [...] | | | | | CENTER | [id number] | | | | | | | [...] (missing) | | (unavailable | 12:49 | [facility] | immunohistoc | | | | ) [...] (missing) | | (unavailable | 12:49 | [facility] | PD-L1 status | | | | [...] (missing) | | (unavailable | 12:49 | [facility] | monoclonal | | | | ) [...] | Unknown if ever smoked [facility] | + + + + | 2022-10-20 00:00 | Unknown if ever smoked | [facility] | + + + + | 2022-10-23 00:00 | Unknown if ever smoked | [facility] | + + + + | 2022-11-07 00:00 | Unknown if ever smoked | [facility] | + + + + | 2022-11-11 00:00 | Unknown if ever smoked | [facility] | + + + + [...]
[~2022-12-13 11:17] MED LIST changes: +ACETAMINOPHEN325 M1 PO; +ACETAMINOPHEN500 MG PO; +CELECOXIB200 MG PO; +GABAPENTIN100 MG PO; +LIDOCAINE PAIN1 EACH TD; +OXYCODONE HCL5 MG PO; +PREGABALIN75 MG PO
--- OUTSIDE RECORDS SUMMARY | 2022-12-13 11:19 | XMS ---
PreManage Notification: MAVIS ARSHAD Security Waist Pleater Events No recent Security Events currently on file CRITERIA MET - 6 ED Visits in 6 Months - [facility] - 3 Facilities in 90 Days CARE PROVIDERS SARWAT REEVES Internal Medicine Current PHONE: [phone] Dario has no Care Guidelines for this patient. E.D. VISIT COUNT (12 MO.) [address] [place] [address] [facility] NOTE: Visits indicate total known visits. ED/UCC VISIT TRACKING (12 MO.) 12/13/2022 11:18 [facility] TYPE: Emergency COMPLAINT: - WEAKNESS 11/10/2022 10:42 [facility] TYPE: Emergency COMPLAINT: - POST SURGERY FALL, POSS BROKEN COLLAR BONE 10/25/2022 16:52 Irene [facility] TYPE: Emergency COMPLAINT: - Fever_POST SURGERY - FEVER UNSPECIFIED DIAGNOSES: 0. Fever, unspecified 1. Fever, unspecified 10/23/2022 16:49 [facility] TYPE: Emergency COMPLAINT: - HIP INJ DIAGNOSES: - Contact with and (suspected) exposure to COVID-19 - Displaced intertrochanteric fracture of left femur, initial encounter for closed fracture - Essential (primary) hypertension - lobsterman (current) use of aspirin - Multiple myeloma not having achieved remission - Other penitentiary (current) drug therapy - Struck by horse, initial encounter 10/20/2022 20:41 [facility] TYPE: Emergency COMPLAINT: - FALL DIAGNOSES: - Disorder of bone, unspecified - Essential (primary) hypertension - lobsterman (current) use of aspirin - Other lobsterman (current) drug therapy - Pain in left hip - Striking against other object with subsequent fall, initial encounter 10/12/2022 13:24 [facility] TYPE: Emergency DIAGNOSES: - Malignant (primary) neoplasm, unspecified - Radiculopathy, lumbar region - Secondary malignant neoplasm of bone - Secondary malignant neoplasm of other specified sites - Back Pain 08/31/2022 09:41 [facility]real TYPE: Emergency COMPLAINT: - CHEST PAIN DIAGNOSES: - Low back pain, unspecified - Lumbago with sciatica, unspecified side - Other lobsterman (current) drug therapy INPATIENT VISIT TRACKING (12 MO.) 11/10/2022 10:43 [facility] TYPE: Observation COMPLAINT: - METASTATIC CANCER DIAGNOSES: - Anemia, unspecified - Displaced intertrochanteric fracture of left femur, initial encounter for closed fracture - Essential (primary) hypertension - Fracture of unspecified part of scapula, right shoulder, initial encounter for closed fracture - Hypo-osmolality and hyponatremia - penitentiary (current) use of aspirin - Malignant neoplasm of unspecified part of unspecified adrenal gland - Other lobsterman (current) drug therapy - Systemic inflammatory response syndrome (SIRS) of non-infectious origin without acute organ dysfunction - Tachycardia, unspecified - Unspecified fall, initial encounter 10/23/2022 21:20 Irene [facility] TYPE: Medical Surgical COMPLAINT: - TRANSFER DIAGNOSES: 0. Displaced intertrochanteric fracture of left femur, initial encounter for closed fracture 1. Displaced intertrochanteric fracture of left femur, initial encounter for closed fracture 2. Multiple myeloma not having achieved remission 3. Essential (primary) hypertension 4. Unspecified hearing loss, bilateral 5. Personal history of irradiation 6. Drug induced constipation 7. Adverse effect of unspecified narcotics, initial encounter 8. lobsterman (current) use of aspirin 10/12/2022 13:24 [facility] TYPE: Internal Medicine DIAGNOSES: - Essential [...] - Secondary malignant neoplasm of right lung [email or web address]
[2022-12-13 17:44] VITALS: BP 136/90
--- NOTE | 2022-12-13 17:58 | NUR ---
REPORT RECIEVED FROM JEAN CLAUDE JONES. BROUGHT BY STRETCHER TO ROOM WITH . SLID TO BED WITH STAFF X4. PT TOLERATED OK BUT PAINFUL. PLACED RESTRICTED EXTREMITY BAND FOR NO BLOOD PRESSURES ON LEFT ARM DUE TO FX AND PAIN WHEN MOVED. REDRESSED IV AFTER FLUSHING. GIVEN ICE WATER AND OFFERED DINNER. PT REFUSED.
[2022-12-13] MEDS ORDERED: FOLIC ACID1 MG PO (18:19)
[2022-12-13] MEDS ORDERED: MORPHINE SULFAT15 M1 PO (18:19)
[2022-12-13] MEDS ORDERED: DEXAMETHASONE4 MG PO (18:19)
[2022-12-13] MEDS ORDERED: HYDROMORPHONE HC4 MG PO (18:20)
--- NOTE | 2022-12-13 18:55 | NUR ---
ASSISTED TO PUT PT ON BEDPAN FOR BM. PT INSTRUCTED TO CALL WHEN DONE.
--- NOTE | 2022-12-13 19:25 | NUR ---
ASSISTED TO ROLL PT FROM BEDPAN AND REMOVE BEDDING. PT HAD SMALL HARD BM AND OLD COVERED BEDSORE ON COCCYX. REMOVED ALLYVN AND REPLACED WITH NEW AFTER STAFF TOOK A PICTURE FOR CHART. JEAN CLAUDE MARIE STATED IT APPEARED TO BE A STAGE TWO. STATES HIS ONCOLOGIST OFFICE PLACED THE ORIGINAL ALLYVN. PT VERY PAINFUL, ADMINISTERED PO DILAUDID. CALLED DR ROMANO, ORDERED TORADOL. ORDERED SUPPOSITORY.
--- NOTE | 2022-12-13 19:30 | NUR ---
REPORT RECEIVED FROM DAY SHIFT RN. PT LYING IN BED ALERT AND ORIENTED. REPORTS INCREASED PAIN AFTER GETTING OFF BED DAVIS. MD IN ROOM TO TALK TO PT AND REGARDING PAIN CONTROL. NEW ORDER PLACED. WAITING FOR PHARMACY TO VERIFY BEFORE ADMINISTERING. NO FURTHER NEEDS AT THIS TIME. WHITE BOARD UPDATED. CALL LIGHT IN REACH.
--- NOTE | 2022-12-13 19:57 | NUR ---
PT RESTING WITH EYES CLOSED. AWAKENS EASILY. REPORTS GENERALIZED PAIN 5/10. ONE TIME TORADOL ADMIN PER ORDER. NO FURTHER NEEDS. CALL LIGHT IN REACH.
[2022-12-13 21:18] VITALS: BP 121/89
--- NOTE | 2022-12-13 22:04 | NUR ---
PT CALLING OUT. C/O INCREASED DISCOMFORT IN ABD AREA. PT REPORTS HE HAS NOT VOIDED SINCE BEFORE COMING TO HOSPITAL AND ALSO REPORTS PAIN ASSOCIATED WITH CONSTIPATION. BLADDER SCANNED FOR 622 ML. HR 140-150'S. RESPIRATIONS 32. PT DIAPHORETIC. SKIN IS COOL AND CLAMMY. NOTIFIED. NEW TELEPHONE ORDERS VERIFIED WITH READBACK METHOD FOR STRAIGHT CATH. STRAIGHT CATH PERFORMED FOLLOWING STERILE TECHNIQUE WITH IMMEDIATE RETURN OF 575 ML CONCENTRATED URINE. PT GINA WELL, REPORTS RELIEF. PRN SUPPOSITORY ADMIN PER ORDER. PT PLACED ON BEDPAN. CPOX PLACED TO MONITOR HR AND OXYGEN. CALL LIGHT IN REACH.
--- NOTE | 2022-12-13 22:44 | NUR ---
PT OFF OF BEDPAN. GOLF BALL SIZE FIRM BALL OF STOOL PASSED. MAMI CARE DONE. PT ABLE TO ASSIST WITHROLLING IN BED FOR CARES. HR UP TO 180'S WITH CARES 160'S AT REST. RESPIRATIONS IN THE 30'S. PT CONTINUES TO COMPLAIN OF ABD PAIN WHICH HE ASSOCIATES WITH CONSTIPATION. ABD TENDER AND DISTENDED. BOWEL TONES ACTIVE. MD NOTIFIED. NEW TELEPHONE ORDERS RECEIVED VERIFIED WITH READBACK METHOD.
--- NOTE | 2022-12-13 23:22 | NUR ---
IN ROOM TO ADMINISTER SCHEDULED MEDS. HR 160'S AT REST. AFTER METOPROLOL ADMIN HR 130'S. RR 30'S. PT TEARFUL C/O "OFF THE CHARTS" ABD PAIN/CRAMPING. THERAPEUTIC COMMUNICATION UTILIZED. PT DIAPHORETIC. PRN FOR PAIN ADMIN PER EMAR. COOL CLOTH TO FOREHEAD. ROOM TEMP ADJUSTED. ASSSITED PT TO REPOSITION FOR COMFORT. NO FURTHER NEEDS AT THIS TIME. CALL LIGHT IN REACH.
--- NOTE | 2022-12-13 23:52 | NUR ---
pt calls to report his pain has not improved. pain is 10/10. pt also states he is "burning up.", oral temp 97.6f. primary rn notified.
[2022-12-14] VITALS (27 sets, daily range): BP systolic 38–191; BP diastolic 18–169
--- NOTE | 2022-12-14 00:15 | NUR ---
PT CONTINUES TO REPORT ABD PAIN "OFF THE CHART." ATTEMPTING TO HAVE BM WITH NO RESULTS. [place] [facility] [place] [facility] [place] ASSIST. RN ASSISTED TO MANUALLY DISIMPACT LARGE AMOUNT HARD STOOL. PT WITH POOR ACTIVITY TOLERANCE. BACK TO BED. MAMI CARE DONE. BRIEF IN PLACE. PT REPORTS LITTLE RELIEF. STILL C/O LOWER ABD PAIN AND CRAMPING. DENIES NAUSEA. ABD FIRM AND DISTENDED. WATER PROVIDED. HOB ELEVATED. PT REQUESTING TO REST. CALL LIGHT IN REACH.
--- NOTE | 2022-12-14 01:00 | NUR ---
PHONE CALL FROM . UPDATED ON pt STATUS, HR, REPORTED ABDOMINAL PAIN, AND MANUAL DISEMPACTION PERFORMED. TELEPHONE ORDER RECEIVED FOR ENEMA. REPEATED ORDER BACK TO VERIFY. NO ADDITIONAL ORDERS RECEIVED.
--- NOTE | 2022-12-14 02:15 | NUR ---
THIS RN AND RN WILLIAMS IN ROOM FOR VS. pt WITH LABORED BREATHING, RR 49. DIFFICULTY OBTAINING SPO2 READING. pt ASHEN IN COLOR. COMPLAINS OF SOB. RT PHONED AND IN ROOM. VS COMPLETE, BP 84/70 ON RIGHT ARM. ASSESSED BP ON LEFT ARM, 101/69 (77). APICAL PULSE 149. MD PHONED BY PRIMARY RN. 13L OXYGEN BY OXYMASK IN PLACE. SPO2 MONITOR NOT GETTING GOOD WAVE FORM, EXTREMITIES COLD TO TOUCH. ABDOMEN DISTENDED, PAINFUL WITH PALPATION. CONVERTER SUPERVISOR AND MD IN ROOM. MD ASSESSING pt. pt CONTINUES TO COMPLAIN OF ABDOMINAL PAIN. CONVERTER SUPERVISOR RN ATTEMPTS TO PLACE ADDITIONAL IV WITHOUT SUCCESS. ORDERS PLACED BY MD. VERBAL ORDER FOR PRN PAIN MEDICATION X 1, REPEATED BACK TO VERIFY. PHONE CALL TO IMAGING, NOTIFIED OF NEW ORDERS. pt TO CT WITH PRIMARY RN. TRANSFERRED TO CCU AT 0305 BY PRIMARY RN JACQUELYN.
--- NOTE | 2022-12-14 02:49 | NUR ---
PHONE CALL TO pt'S . UPDATED THAT pt STATUS HAS CHANGED, IMAGING ORDERED. WILL COME TO HOSPITAL. pt UPDATED WELL.
--- NOTE | 2022-12-14 03:00 | NUR ---
PT OFF FLOOR TO CT WITH THIS RN, CUSTOMER SERVICES COORDINATOR, AND RT. PT TX TO CCU ROOM [address] PER VERBAL ORDER FROM MD. ALL BELONGINS MOVED TO ROOM 129. REPORT GIVEN TO CCU RN.
--- NOTE | 2022-12-14 03:25 | NUR ---
RR BETWEEN 50 TO 60, SATS 70S AND HR IN THE 130S. PT IS ASHEN, WITH MOTTLED LOWER EXTREMITIES. PT STATES HE IS GETTING TIRED. PT UNABLE TO TOLERATE BIPAP. DR. SWEENEY INFORMED OF PTS CONDITION AND CONCERN FOR COMPRIMISED AIRWAY.
--- NOTE | 2022-12-14 03:35 | NUR ---
PT INTUBATED WITH A 7.5 ETT AT 23 CM TEETH. RT AT BEDSIDE WITH POSITIVE COLOR CHANGE IN COLOMETRIC CO2 DEVICE. OGT PLACED AND SECURED TO ETT. PT PREPPED FOR CENTRAL LINE PLACEMENT. PT NOTED TO BE HYPOTENSIVE. ORDERS OBTAINED FROM DR. SWEENEY FOR NOREPI GTT AND EPINEPHRINE IV PUSH.
[2022-12-14 04:13] LABS: HEMATOCRIT 39.5 % (35.0-50.0); PLATELET COUNT 107 K/uL (140-440)
[2022-12-14 04:16] LABS: HEMOGLOBIN 12.6 g/dL (12.0-18.0); MCV 93.8 fl (81-99); RBC 4.21 M/ul (4.3-5.7); RDW 17.1 (10.5-15.0)
[2022-12-14 04:25] LABS: BASE EXCESS, BLOOD GAS -19.9 mmol/L (-2-2); HCO3, BLOOD GAS 10.7 mmol/L (22-26); O2 SATURATION, BLOOD GAS 99.9 % (95.0-100.0); PCO2, BLOOD GAS 42.4 mmHg (35-45); PH, BLOOD GAS 7.01 (7.35-7.45); PO2, BLOOD GAS 303 mmHg (80-100)
[2022-12-14 04:26] LABS: ALBUMIN 1.9 g/dL (3.4-5.0); ALBUMIN/GLOBULIN RATIO 0.58 (1.1-2.4); ANION GAP 28.8 (7-21); BILIRUBIN, TOTAL 1.3 ng/dL (0.2-1.0); BUN/CREATININE RATIO 26.96 (6.0-28.6); CALCIUM 10.1 mg/dL (8.5-10.1); CREATININE, SERUM 1.78 mg/dL (0.70-1.30); POTASSIUM 5.8 mmol/L (3.5-5.1); PROTEIN, TOTAL 5.2 g/dL (6.4-8.2)
[2022-12-14 04:26] LABS: OXYGEN RECEIVED, BLOOD GAS NOT STATED
[2022-12-14 04:31] LABS: BANDS, MANUAL DIFF 53; LYMPHOCYTES, MANUAL DIFF 13; NEUTROPHILS, MANUAL DIFF 34
--- NOTE | 2022-12-14 05:00 | NUR ---
PT WITH CRITICAL LACTATE 16 [address] OF 7.0. DR[address] SWEENEY NOTIFIED. BC OBTAINED FROM CENTRAL LINE. LAB UNABLE TO DRAW SECOND SET. LAB TO CHECK IN LATER THIS MORNING TO RE-ATTEMPT LAB DRAW. PTS SPOUSE IS AT THE BEDSIDE.
--- NOTE | 2022-12-14 05:41 | EKG ---
[facility] [address] [place] [address] Signed Sinus tachycardia Otherwise normal ECG When compared with ECG of 10-NOV-2022 11:12, No significant change was found Confirmed by JACIEL SWEENEY MD ([id number]) on 12/14/2022 5:41:27 AM Electronically Signed By: JACIEL SWEENEY 12/14/22 0541 PATIENT NAME: MAVIS ARSHAD Electrocardiogram DATE OF : 56 PHYSICIAN: JACIEL SWEENEY REPORT #: [id number] REPORT IS CONFIDENTIAL AND NOT TO BE RELEASED WITHOUT AUTHORIZATION
--- NOTE | 2022-12-14 05:45 | NUR ---
PT WITH PROFOUND HYPOTENSION. NOREPI GTT MAXED, NEOSYNEPHRINE GTT ORDERED AND BEING PREPARED. 0.5 MG EPINEPHRINE IVP ADMINISTERED. MD AWARE AND AT BEDSIDE. PH 7 AND LACTATE 16. MD GUTIÉRREZ GTT ORDERED. ATTEMPTED TO COLLECT URINE, BUT NOT ENOUGH AT THIS TIME. PT CONTINUES TO RECIEVE NACL FLUID BOLUS. B/C DRAWN X 1 AND PT RECIEVING ABX.
[2022-12-14 06:19] LABS: BASE EXCESS, BLOOD GAS -17.5 mmol/L (-2-2); O2 SATURATION, BLOOD GAS 96.4 % (95.0-100.0); OXYGEN RECEIVED, BLOOD GAS NOT STATED; PCO2, BLOOD GAS 34.7 mmHg (35-45); PH, BLOOD GAS 7.11 (7.35-7.45); PO2, BLOOD GAS 109 mmHg (80-100)
--- NOTE | 2022-12-14 06:40 | NUR ---
CONNECTED WITH FAMILY IN CCU WAITING ROOM. , SON, BROTHER, AND [id number] WERE PRESENT. PRAYED TOGETHER PRAYER OF COMMENDATION AND SUPPORT. FAMILY APPEARS TO BE AWARE OF SITUATION. PROVIDED HOSPITALITY. ESCORTED FAMILY MEMBERS TO SIT WITH PT IN SMALL GROUPS. PRAYED WITH IN PT ROOM. GAVE PRAYER SHAWL.
--- NOTE | 2022-12-14 07:46 | NUR ---
Spoke with Yana. She denies needs, family are on their way from [place]. I will fax [facility] the notes as they requested last night. I will cancel transportation we had set up for pt to go to his radiation treatments this week.
--- NOTE | 2022-12-14 07:55 | NUR ---
Pt cont. with end stage metastatic cancer. Came to the ER last night for uncontrolled pain. Main concern for pt and was for pt to keep his radiation appts for this week. Transport was scheduled. Pt declined during the night and is now intubated in CCU. is at bedside. They cont. to live in shed and horsetrailer while they are building their home. Pt is requiring a 2-3 person assist at this time. They have set up a ramp into the horse trailer. Family were able to assist this week with getting pt in and out of the car. I did attempt to discuss hospice with pt and last night, but pt believes with radiation he can be cured. Focus was on cont. radiation treatments. Per family are on the way. Will cont to provide support to at this time.
--- NOTE | 2022-12-14 08:13 | NUR ---
CARE OF PATIENT RESUMED BY THIS RN AT 0730. PT'S SHRUTI IN ROOM AND TEARFUL ABOUT SITUATION. PT REMAINS ON VENT WITH SETTINGS OF VC/AC 16, BUT PATIENT IS BREATHING 37 CONSISTENTLY. OTHER VENT SETTINGS ARE VT 440, PEEP 5, FI02 50%. PATIENT HAS A 7.5 ETT SECURED 23 AT THE TEETH. OG TUBE IN PLACE. RASS SCORE IS CURRENTLY -5. SP02 IS READING AT 83% AND FI02 INCREASED TO 75% AT THIS TIME. PT HAS VERSED INFUSING AT 5 MG/HR, SODIUM BICARB AT 125 ML/HR. NOREPI INFUSING AT 25 MCG/MIN AT THIS TIME. RT NOW IN ROOM AND INCREASES FI02 BACK TO 100%. WILL ASK MD ABOUT NEXT ABG TO BE DRAWN. PT MADE A TOTAL OF 3 ML OF URINE AT 0800.
--- NOTE | 2022-12-14 08:50 | NUR ---
PT REMAINS CRITICALLY ILL AND HEMODYNAMICALLY UNSTABLE AT THIS TIME. PT WITH RASS OF -4 TO -5. PT NOTED TO BE NON COMPLIANT WITH VENTILATOR. VERSED GTT INCREASED TO 5 MG/ HR. VENTILATOR SETTINGS UNCHANGED. OGT PRODUCED 1150 CC OF DARK BROWN CONTENTS FROM STOMACH. OGT PLACED ON LIS. LS COARSE TO DIMINISHED BILATERALLY. PT REMAINS ASHEN WITH CYANOSIS PRESENTING TIPS OF EARS. PT CONTINUES TO HAVE MOTTLED SKIN IN BILAT. LOWER EXTREMITIES. PT NOTED TO BE OLIGURIC. TEMP SENSING GARCIA PROBE PLACED. PTS REMAINS NORMOTHERMIC. PT HAS BEEN IN ST WITH RATES IN THE 130 - 140S. OT CONTINUES TO BE HYPOTENSIVE REQUIRING HIGHER DOSE NOREPI GTT TO BP SUPPORT. BOWEL SOUNDS DIMINISHED. DURING SHIFT PT TREATED WITH A TOTAL OF 1 LITER LR, 2 LITERS NS, SODIUM BICARB, IV CALCIUM, MULT. DIFFERENT BROAD SPECTRUM IV ABX, .5 EPINEPHRINE X 2 SEPERATE DOSES, AND NEOSYNEPHRINE PREPARED AND PLACED ON STANDBY. DURING SHIFT PT WAS INTUBATED, OGT AND CENTRAL LINE PLACED AND CONFIRMED WITH X RAY. DR. CAMACHO READ X-RAY AT BEDSIDE AND PROVIDED VERBAL CONSENT FOR USE OF CENTRAL LINE. BASELINE LABS OBTAINED, BC X 1 OBTAINED AND GARCIA CATHETER INSERTED. UNABLE TO OBTAINE UA AT THIS TIME. FULL PT REPORT PROVDED TO CHELSEA SILVERIO. BEDSIDE SAFETY CHECK PERFORMED WITH CHELSEA.
--- NOTE | 2022-12-14 09:17 | NUR ---
DR. COLLINS IN ROOM AND EVALUATES PATIENT. BEDSIDE RECTAL EXAM DONE AND NOTED TO HAVE STOOL STILL PRESENT. DR. COLLINS RECOMMENDING RETURN FLOW ENEMAS. NEW BAG OF NOREPI STARTED. ABG TO BE DRAWN AT 1000.
--- NOTE | 2022-12-14 10:37 | NUR ---
0935: NOTED THAT PATIENT'S HR WAS STARTING TO DECREASE, FIRST 100s, THEN 90s, THEN DOWN TO 70s RATHER SUDDENLY. BP WAS 82/60 (68) AT 0930. DR. SWEENEY CALLED AND ASKED TO RETURN TO BEDSIDE. 0937: HR WAS DOWN TO 50s. BP 71/41. ALL OTHER DRIPS HAVE REMAINED UNCHANGED. PER PATIENT'S , SHE DOES NOT WANT PATIENT TO BE A FULL CODE AND WOULD NOT LIKE CHEST COMPRESSIONS DONE. AT THIS POINT, CAROTID PULSE WAS NOT PALPABLE AND PATIENT WAS VISIBLY BECOMING MORE PALE. PATIENT THEN PROGRESSED INTO ASYSTOLE. FAMILY IS IN ROOM. 0940: DR. SWEENEY AT THE BEDSIDE. 0945: PATIENT PRONOUNCED PER DR. SWEENEY. JODIE ADAMS IN ROOM AND INSTRUMENTALLY HELPING FAMILY AND COORDINATION OF EVERYTHING.
--- NOTE | 2022-12-14 11:32 | NUR ---
I WAS PRESENT WHEN DR. COLLINS TALKED WITH FAMILY FOLLOWING HIS EXAM. HE TALKED WITH FAMILY ABOUT CHANGING GOALS TO KEEPING PT COMFORTABLE. FAMILY TALKED AMONGST THEMSELVES AFTER DR. COLLINS LEFT AND CAME TO CONSENSUS THAT COMFORT CARE WAS DESIRED. PT DETERIORATED. BROUGHT INTO ROOM. PT NOT CODED PER FAMILY REQUEST.
--- NOTE | 2022-12-14 11:43 | NUR ---
PATIENT TAKEN TO [facility] AT 1109. ALL LINES/TUBES/DRAINS REMOVED PRIOR TO PATIENT LEAVING. PT'S FAMILY ABLE TO SPEND TIME WITH HIM PRIOR TO BE TAKEN TO HOME.
--- NOTE | 2022-12-14 14:04 | NUR ---
FAMILY IS FROM OUT OF TOWN AND HAS NO HOME PREFERENCE. CONTACT ON-CALL HOME, [facility] AT 1032. [facility] 1053. [facility]. ALL BELONGINGS WENT WITH SHRUTI.
--- NOTE | 2022-12-15 10:42 | CONS ---
[facility] [address], [place] [address] Signed DATE OF CONSULTATION: 12/14/2022 CONSULTING PHYSICIAN: Dr. Aguirre. PROBLEM: Probable fecal impaction, colonic obstruction, sepsis, end-stage metastatic adrenal cancer. HISTORY OF PRESENT ILLNESS: This 62-year-old white man has been admitted to the hospital on December 13, 2022, at approximately 5:[address] Aguirre, hospitalist. The patient is known to have metastatic adrenal cancer including bony metastases and fractures as well as metastatic disease to the liver and brain. His admission yesterday was for left shoulder pain. The patient has undergone radiation therapy in [place] and chemotherapy in the [facility]. He was anticipating radiation therapy to the brain for several treatments. He has numerous metastatic lesions to the lungs and in October underwent left hip surgery by elsewhere possibly for metastatic fracture, though I have no idea entirely. The patient and his family have been resistant to hospice care, though he does have advanced metastatic disease. The patient was anticipating radiation therapy and given his discomfort it was uncertain if he would be able to make those appointments. On that basis, he presented to the emergency room and was evaluated by Dr. House, having arrived by ambulance. A CT scan of the shoulder was done showing lytic expansile lesion of the left 4th rib in the midaxillary line, innumerable round metastatic nodule in the lungs and mediastinal lymphadenopathy. Moderate glenohumeral and acromioclavicular osteoarthritis was noted as well. Following admission, the patient began having abdominal bloating and feeling constipated. He had no nausea or vomiting. He was given MiraLAX and senna without improvement. An enema was given with minimal results. The patient had increasing tachycardia and respirations worsened. An abdominal CT scan was performed which showed a dilated colon, fair amount of fluid within the stomach on my review. No evidence of small-bowel obstruction and what appeared to be probable fecal impaction. Worsening metastatic disease is additionally noted. He had progressive decline requiring emergent intubation by Dr. Tripathi, emergency room physician and a picture highly suggestive of diffuse septic change. His white count was noted to be 12.9, hematocrit of 39.5, platelets 107,000. His Chem profile showed elevated creatinine to 1.78, potassium of 5.8, lactic acid is 16.3 at 0400, magnesium was noted to be elevated at 3.2. Liver enzymes were elevated, commensurate with his metastatic disease including alkaline phosphatase of 420. Electronically Signed By: BOLIVAR COLLINS MD 12/15/22 1042 PATIENT NAME: MAVIS ARSHAD CONSULTATION DATE OF : 56 REPORT #: [id number] PHYSICIAN: BOLIVAR COLLINS MD PCP: OTHER PCP REPORT IS CONFIDENTIAL AND NOT TO BE RELEASED WITHOUT AUTHORIZATION [facility] [address] [place] [id number] Signed The patient has been on pressor agents norepinephrine at 25 mcg/minute. Despite this, patient has diffuse mottling and remains quite tachycardic. Consultation is obtained to assess for options of management, particularly regarding possible fecal impaction/obstruction. I have conferred with Dr. Aguirre prior to my evaluation as well. PHYSICAL EXAMINATION: VITAL SIGNS: Pulse rate is 116, blood pressure 101/65, respirations 37 on full ventilatory support. O2 saturation is 92% on 100% FiO2. NECK: Trachea is midline. Skin is diffusely mottled. ABDOMEN: Distended. There is no focal tenderness that can be determined. An orogastric tube is in place draining bilious fluid. EXTREMITIES: Showed diffuse mottling as well. RECTAL: Exam was performed which showed soft stool in the rectal vault. Partial disimpaction was undertaken by me. I reviewed the x-rays including the chest x-ray at 0421, which shows an orogastric tube in good position. A Port-A-Cath in the right subclavian area well position. Diffuse reticular changes throughout the lungs and endotracheal tube within the trachea itself distal portion uncertain to me. CT scan of the abdomen and pelvis was reviewed, which showed a markedly distended stomach) prior to orogastric tube placement. No doubt diffuse metastatic disease to the lungs, metastatic disease to the liver and dilated colon with air-fluid levels, particularly in the cecal area. Small bowel appears decompressed. There is fecal burden in the rectum extending up to the sigmoid and proximally. Additional findings included suspected filling defect in the left common and femoral vein extending to the left superficial femoral vein suspicious for thrombosis. ASSESSMENT: The patient does have functional colonic obstruction which is not likely to be the underlying source of his current decline, though certainly contributory to it and problematic. Emergency decompression of the colon would be a consideration, howevwer he would not likely tolerate essentially any anesthetic appropriate to that intervention at this time-- he is on supernormal dosage of norepinephrine and appears mottled and very tenous. Closer review of the recent ct scan also demonstrated probable left iliac and femoral dvt which may or may not contribute to his current problems. The patient is in the terminal phase of a terminal illness with widely metastatic adrenal cancer. Radiation therapy to metastatic disease to the brain was for palliative intent, though his seemed to have misapprehension that it would be curative--it Electronically Signed By: BOLIVAR COLLINS MD 12/15/22 1042 PATIENT NAME: MAVIS ARSHAD CONSULTATION DATE OF : 56 REPORT #: [id number] PHYSICIAN: BOLIVAR COLLINS MD PCP: OTHER PCP REPORT IS CONFIDENTIAL AND NOT TO BE RELEASED WITHOUT AUTHORIZATION [facility] [address], [place] [address] Signed would not be. I discussed these details extensively. His sons have a good grasp on the reality of the situation, and I think the patients now does as well. I had a family conference attended by the patient's , his oldest and youngest son and a nephew. I discussed the grave nature of this problem and the incurability of his malignancy to begin with. The patient has heretofore maintained a high level of optimism in hopes of treatment, but from what I understand has had a little willingness to accept the incurability of his underlying malignancy. Understandably, his wishes to be supportive of his wishes. I counseled that I believe the best course of action is one of ensuring his comfort by whatever means, but would recommend against extraordinary resuscitative measures. His sons are fully on board and in concert with such an approach and his reluctantly agrees that is likely the best course. The set key driver was present and supportive and provided a special family prayer in hopes of providing good support to them all. MD KHUSHBOO Adams/CARMELO /[id number] cc: Dr. Uriah Aguirre Copies: ~ Electronically Signed By: BOLIVAR COLLINS MD 12/15/22 1042 PATIENT NAME: MAVIS ARSHAD CONSULTATION DATE OF : 56 REPORT #: [id number] PHYSICIAN: BOLIVAR COLLINS MD PCP: OTHER PCP REPORT IS CONFIDENTIAL AND NOT TO BE RELEASED WITHOUT AUTHORIZATION
== END 2022-12-14 09:45 | DRG 947 ==
LOC: ED 11:17 → MS 11:19 → CCU 12-14 03:09
PROVIDERS: ADMIT Family Medicine; ATTEND Family Medicine
PROC: 3E033XZ Introduction of Vasopressor into Peripheral Vein, Percutaneous Approach (ICD-10-PCS; principal; 2022-12-14)
PROC: 02HV33Z Insertion of Infusion Device into Superior Vena Cava, Percutaneous Approach (ICD-10-PCS; 2022-12-14)
PROC: B548ZZA Ultrasonography of Superior Vena Cava, Guidance (ICD-10-PCS; 2022-12-14)
PROC: 5A1935Z Respiratory Ventilation, Less than 24 Consecutive Hours (ICD-10-PCS; 2022-12-14)
PROC: 4A033R1 Measurement of Arterial Saturation, Peripheral, Percutaneous Approach (ICD-10-PCS; 2022-12-14)
PROC: 0T9B70Z Drainage of Bladder with Drainage Device, Via Natural or Artificial Opening (ICD-10-PCS; 2022-12-14)
PROC: 3E03329 Introduction of Other Anti-infective into Peripheral Vein, Percutaneous Approach (ICD-10-PCS; 2022-12-14)
PROC: 0BH17EZ Insertion of Endotracheal Airway into Trachea, Via Natural or Artificial Opening (ICD-10-PCS; 2022-12-14)
PROC: 0DH67UZ Insertion of Feeding Device into Stomach, Via Natural or Artificial Opening (ICD-10-PCS; 2022-12-14)
DX: G89.3 Neoplasm related pain (acute) (chronic) (principal); A41.9 Sepsis, unspecified organism; J96.91 Respiratory failure, unspecified with hypoxia; C78.7 Secondary malignant neoplasm of liver and intrahepatic bile duct; K56.7 Ileus, unspecified; C79.51 Secondary malignant neoplasm of bone; E87.20 Acidosis, unspecified; N17.9 Acute kidney failure, unspecified; C79.31 Secondary malignant neoplasm of brain; K56.609 Unspecified intestinal obstruction, unspecified as to partial versus complete obstruction; C74.90 Malignant neoplasm of unspecified part of unspecified adrenal gland; R65.21 Severe sepsis with septic shock; M25.512 Pain in left shoulder; I10 Essential (primary) hypertension; M19.012 Primary osteoarthritis, left shoulder; M54.9 Dorsalgia, unspecified; K21.9 Gastro-esophageal reflux disease without esophagitis; K59.00 Constipation, unspecified; I87.8 Other specified disorders of veins; M84.5 Pathological fracture in neoplastic disease; R59.0 Localized enlarged lymph nodes; R74.8 Abnormal levels of other serum enzymes; Z79.891 Long term (current) use of opiate analgesic; Z98.890 Other specified postprocedural states; Z79.899 Other long term (current) drug therapy; Z92.3 Personal history of irradiation; Z92.21 Personal history of antineoplastic chemotherapy
CPT/HCPCS: 31500; 36415; 36600; 51702; 71045; 73030; 73200; 74177; 80053; 82803; 83605; 83735; 85025; 87040; 94002; 96365; 96374; 96375; 96376; 99285-25; A9270; C9113; G0378; J0171; J0692; J1170; J1885; J2250; J2371; J3370; J7030; J7121; J8540; Q9967